=== PATIENT | female | born 1960 | race Caucasian/White ===

== ENCOUNTER 2023-05-16 10:14 | Inpatient (IN) | payer MEDICAID ==
[2023-05-16] VITALS (24 sets, daily range): BP systolic 63–118; BP diastolic 48–90; PULSE 112–145; RESP 21–27; TEMP 100
[~2023-05-16] VITALS: Ht 152.4 cm; Wt 71.7 kg
[2023-05-16] MEDS ORDERED: PIPERACILLIN/TAZ 3.375G PREMIX 50 ML IV ONE (10:45)
[2023-05-16] MEDS ORDERED: VANCOMYCIN 1G PREMIX 200 ML IV ONE (10:45)
[2023-05-16] MEDS ORDERED: SODIUM CHLORIDE 0.9% 1000ML BAG (SEPSIS BOLUS) IV ONE (10:45)
[2023-05-16 11:02] LABS: HEMATOCRIT. 34.7 % (36.0-48.0); MEAN CORPUSCULAR HEMOGLOBIN 34.7 pg (28.0-32.0); MEAN CORPUSCULAR HGB CONC 34.5 g/dL (31.0-37.0); MEAN CORPUSCULAR VOLUME 100.5 fL (81.0-99.0); MEAN PLATELET VOLUME 8.5 fl (7.4-10.4); PLATELET 112 x1000/uL (130-400); RED BLOOD CELL COUNT 3.45 mill/uL (4.2-5.4); RED CELL DISTRIBUTION WIDTH 25.5 % (11.6-14.6); WHITE BLOOD COUNT 16.3 x1000/uL (4.5-11.0)
[2023-05-16 11:05] LABS: DIFFERENTIAL COMMENT 1
[2023-05-16 11:15] LABS: CHLORIDE 103 mEq/L (98-107); INDEX HEMOLYSI 1 (1-3); INDEX ICTERIC 1 (1-4); INDEX LIPEMIC 1 (1-3); POTASSIUM 3.1 mEq/L (3.5-5.1); SODIUM 133 mEq/L (136-145)
[2023-05-16 11:25] LABS: ALANINE AMINOTRANSFERASE 51 IU/L (13-61); ALBUMIN 2.5 g/dL (3.4-5.0); ASPARTATE AMINOTRANSFERASE 61 IU/L (15-37); BILIRUBIN TOTAL 1.6 mg/dL (0.1-1.0); CALCIUM 9.1 mg/dL (8.5-10.1); CARBON DIOXIDE 22 mEq/L (21-32); CREATININE 0.6 mg/dL (0.6-1.3); GLUCOSE 221 mg/dL (70-105); NT PRO B-TYPE NATRIURETIC PEP 2107 pg/mL (5-125); PROTEIN TOTAL 7.2 g/dL (6.0-8.3); UREA NITROGEN BLOOD 18 mg/dL (7-21)
[2023-05-16 11:33] LABS: LACTIC ACID 6.4 mmol/L (0.4-2.0)
[2023-05-16 11:34] LABS: TROPONIN I HIGH SENSITIVITY 173 ng/L (<54)
[2023-05-16 11:40] LABS: ANISOCYTOSIS 1+; PLATELET ESTIMATE SLIGHTLY DECREASED
[2023-05-16 11:48] LABS: BG CARBOXYHEMOGLOBIN 1.1 % (0.5-1.5); BG DEOXYHEMOGLOBIN 3.7 % (0.0-5.0); BG FRACTION INSPIRED OXYGEN 36; BG HCO3 ACT 17.6 mmol/L (22.0-26.0); BG OXYGEN SATURATION 96.3 % (92.0-98.5); BG OXYHEMOGLOBIN 95.2 % (94.0-97.0); BG PCO2 29.4 mmHg (35.0-45.0); BG PH 7.396 (7.350-7.450); BG PO2 87.4 mmHg (75.0-100.0); BG SAMPLE SITE LEFT RADIAL; BG TOTAL HEMOGLOBIN 12.3 g/dL (12.0-18.0); BG TOTAL RESPIRATORY RATE 30 b/min; BG VENT MODE NASAL CANNULA
[2023-05-16] MEDS ORDERED: ETOMIDATE 2MG/ML 10ML VIAL IV ONE ×2 (12:00→13:30)
[2023-05-16] MEDS ORDERED: SUCCINYLCHOLINE CHLORIDE 200MG/10ML IV ONE ×2 (12:00→13:30)
[2023-05-16] MEDS ORDERED: PROPOFOL 10MG/ML 100ML 100 ML IV ONE ×2 (12:00→13:30)
[2023-05-16 12:58] LABS: INR 2.1; PROTHROMBIN TIME 21.2 sec (9.6-11.0)
[2023-05-16] MEDS ORDERED: FUROSEMIDE 40MG/4ML VIAL IVP ONE (13:00)
[2023-05-16] MEDS ORDERED: FENTANYL 2500MCG/250ML PMX 250 ML IV ONE (13:30)
[2023-05-16] MEDS ORDERED: FENTANYL CITRATE 2,500 MCG in SODIUM CHLORIDE 0.9% 200 ML IV PRN (14:15)
[2023-05-16 14:42] LABS: CLARITY URINE TURBID (CLEAR); COLOR URINE DARK YELLOW (YELLOW); GLUCOSE URINE TRACE (NEGATIVE); KETONES URINE NEGATIVE (NEGATIVE); LEUKOCYTE ESTERASE URINE NEGATIVE (NEGATIVE); NITRITE URINE NEGATIVE (NEGATIVE); OCCULT BLOOD URINE 1+ (NEGATIVE); PH URINE 5.5 (4.5-8.0); PROTEIN URINE 2+ (NEGATIVE); SPECIFIC GRAVITY URINE 1.021 (1.005-1.030)
[2023-05-16 14:47] LABS: LACTIC ACID 5.6 mmol/L (0.4-2.0)
[2023-05-16] MEDS ORDERED: PROPOFOL 10MG/ML 100ML 100 ML IV PRN (15:00)
[2023-05-16] MEDS ORDERED: NOREPINEPHRINE 8MG/250ML PMX 250 ML IV PRN (15:00)
[2023-05-16 15:11] LABS: BACTERIA URINE 2+; SQUAMOUS EPITHELIAL CELL URINE RARE /lpf (RARE/1+)
[2023-05-16 15:12] LABS: RBC URINE 0-2 /hpf (0-2); WBC URINE 0-2 /hpf (0-2)
[2023-05-16] MEDS ORDERED: GUAIFENESIN 200MG/10ML SUGAR FREE UDC PO PRN (15:15)
[2023-05-16] MEDS ORDERED: DEXTROSE 50% WATER 50ML SYRINGE IV PRN (15:15)
[2023-05-16] MEDS ORDERED: KCL 20MEQ/100ML PREMIX 100 ML IV NR (15:15)
[2023-05-16] MEDS ORDERED: VANCOMYCIN 1G PREMIX 200 ML IV SCH (15:15)
[2023-05-16] MEDS ORDERED: MAGNESIUM/ALUMINUM HYDROXIDE/SIMETHICONE 30ML UDC PO PRN (15:15)
[2023-05-16] MEDS ORDERED: ENOXAPARIN 40MG/0.4ML SYR SUBCUT SCH (15:15)
[2023-05-16] MEDS ORDERED: DOCUSATE SODIUM 100MG CAPSULE PO PRN (15:15)
[2023-05-16] MEDS ORDERED: IPRATROPIUM/ALBUTEROL 0.5-3(2.5)MG/3ML NEB NEB PRN (15:15)
[2023-05-16 15:19] LABS: BG DEOXYHEMOGLOBIN 16.4 % (0.0-5.0); BG FRACTION INSPIRED OXYGEN 60; BG HCO3 ACT 20.2 mmol/L (22.0-26.0); BG METHEMOGLOBIN 0.1 % (0.0-1.5); BG OXYGEN SATURATION 83.4 % (92.0-98.5); BG OXYHEMOGLOBIN 82.5 % (94.0-97.0); BG PCO2 47.4 mmHg (35.0-45.0); BG PH 7.248 (7.350-7.450); BG PO2 54.6 mmHg (75.0-100.0); BG SAMPLE SITE RIGHT BRACHIAL; BG TOTAL HEMOGLOBIN 13.3 g/dL (12.0-18.0); BG VENT MODE VENT - AC
[2023-05-16] MEDS ORDERED: PIPERACILLIN/TAZ 3.375G PREMIX 50 ML IV NR (15:45)
[2023-05-16] MEDS ORDERED: NOREPINEPHRINE 8MG/250ML PMX 250 ML IV ONE (15:45)
[2023-05-16 16:25] LABS: PHOSPHORUS 2.9 mg/dL (2.5-4.9)
[2023-05-16 16:55] LABS: VITAMIN B12 SERUM 1236 pg/mL (211-911)
[2023-05-16] MEDS ORDERED: FUROSEMIDE 40MG/4ML VIAL IV SCH (17:00)
[2023-05-16] MEDS ORDERED: VANCOMYCIN 1.25GM PMX (XELLIA) 250 ML IV SCH (17:00)
[2023-05-16 17:06] LABS: FOLIC ACID (FOLATE) SERUM > 20.00 ng/mL (>5.38)
[2023-05-16] MEDS ORDERED: SODIUM BICARBONATE 8.4% 1 MEQ/ML 50ML SYR IV NR (19:48)
[2023-05-16] MEDS: IPRATROPIUM BROMIDE (0.02%) 0.5MG/2.5ML NEB HHN SCH (20:17)
[2023-05-16] MEDS: INSULIN LISPRO 100 UNITS/ML SUBCUT SCH (21:00)
[2023-05-16] MEDS: BLOOD SUGAR DIAGNOSTIC STRIP TEST SCH (21:00)
[2023-05-16] MEDS ORDERED: VASOPRESSIN 20 UNIT in SODIUM CHLORIDE 0.9% 99 ML IV PRN (21:45)
[2023-05-16] MEDS ORDERED: NOREPINEPHRINE 32 MG in DEXT 5% WATER 218 ML IV PRN (21:45)
[2023-05-16] MEDS ORDERED: PIPERACILLIN/TAZOBACTAM 3.375 G in DEXTROSE 5% WATER 50 ML IV SCH (22:00)
[2023-05-16] MEDS ORDERED: VANCOMYCIN 750MG PREMIX 150 ML IV SCH (22:00)
[2023-05-16] MEDS: ENOXAPARIN 80MG/0.8ML SYR SUBCUT SCH (22:28)
[2023-05-16 22:30] LABS: CREATINE KINASE MB FRACTION 3.9 ng/mL (0.5-3.6)
[2023-05-16 22:34] LABS: AMMONIA 40 uMol/L (<32)
[2023-05-16] MEDS: PHENYLEPHRINE 100 MG in DEXT 5% WATER 240 ML IV PRN (22:34)
[2023-05-17] VITALS (104 sets, daily range): BP systolic 43–135; BP diastolic 28–98; PULSE 116–152; RESP 6–28; TEMP 98.7–102.2
[2023-05-17] MEDS: IPRATROPIUM BROMIDE (0.02%) 0.5MG/2.5ML NEB HHN SCH ×7 (00:13→20:13)
[2023-05-17] MEDS: ACETAMINOPHEN 325MG TABLET PO PRN (04:44)
[2023-05-17] MEDS: PHENYLEPHRINE 100 MG in DEXT 5% WATER 240 ML IV PRN ×3 (04:50→22:30)
[2023-05-17 05:20] LABS: HEMATOCRIT. 35.4 % (36.0-48.0); HEMOGLOBIN. 12.1 g/dL (12.0-16.0); MEAN CORPUSCULAR HGB CONC 34.2 g/dL (31.0-37.0); MEAN CORPUSCULAR VOLUME 105.4 fL (81.0-99.0); MEAN PLATELET VOLUME 9.1 fl (7.4-10.4); PLATELET 136 x1000/uL (130-400); RED BLOOD CELL COUNT 3.36 mill/uL (4.2-5.4); RED CELL DISTRIBUTION WIDTH 25.9 % (11.6-14.6); WHITE BLOOD COUNT 14.8 x1000/uL (4.5-11.0)
[2023-05-17 05:25] LABS: CHLORIDE 101 mEq/L (98-107); INDEX HEMOLYSI 1 (1-3); INDEX ICTERIC 1 (1-4); INDEX LIPEMIC 1 (1-3); POTASSIUM 3.3 mEq/L (3.5-5.1); SODIUM 136 mEq/L (136-145)
[2023-05-17 05:30] LABS: INR 3.1; PROTHROMBIN TIME 30.6 sec (9.6-11.0)
[2023-05-17 05:45] LABS: ALANINE AMINOTRANSFERASE 39 IU/L (13-61); ALBUMIN 2.2 g/dL (3.4-5.0); ASPARTATE AMINOTRANSFERASE 67 IU/L (15-37); BILIRUBIN TOTAL 1.6 mg/dL (0.1-1.0); CALCIUM 8.4 mg/dL (8.5-10.1); CARBON DIOXIDE 19 mEq/L (21-32); CREATINE KINASE 309 IU/L (26-192); CREATINE KINASE MB FRACTION 3.8 ng/mL (0.5-3.6); CREATININE 2.1 mg/dL (0.6-1.3); GLUCOSE 136 mg/dL (70-105); PROTEIN TOTAL 6.5 g/dL (6.0-8.3); T4 FREE 1.05 ng/dL (0.76-1.46); UREA NITROGEN BLOOD 32 mg/dL (7-21)
[2023-05-17 06:05] LABS: TROPONIN I HIGH SENSITIVITY 368 ng/L (<54)
[2023-05-17] MEDS ORDERED: FENTANYL 2500MCG/250ML PMX 250 ML IV PRN (07:00)
[2023-05-17] MEDS: ENOXAPARIN 80MG/0.8ML SYR SUBCUT SCH (07:17)
[2023-05-17 07:49] LABS: DIFFERENTIAL COMMENT 1
[2023-05-17] MEDS: BLOOD SUGAR DIAGNOSTIC STRIP TEST SCH ×4 (07:50→21:08)
[2023-05-17] MEDS: INSULIN LISPRO 100 UNITS/ML SUBCUT SCH ×4 (08:20→21:25)
[2023-05-17 08:25] LABS: BG BASE EXCESS -8.5 mmol/L (-2.0-2.0); BG CARBOXYHEMOGLOBIN 0.6 % (0.5-1.5); BG DEOXYHEMOGLOBIN 7.7 % (0.0-5.0); BG FRACTION INSPIRED OXYGEN 100; BG HCO3 ACT 18.2 mmol/L (22.0-26.0); BG METHEMOGLOBIN 0.3 % (0.0-1.5); BG OXYGEN SATURATION 92.2 % (92.0-98.5); BG OXYHEMOGLOBIN 91.4 % (94.0-97.0); BG PCO2 41.9 mmHg (35.0-45.0); BG PH 7.256 (7.350-7.450); BG PO2 69.4 mmHg (75.0-100.0); BG SAMPLE SITE RIGHT RADIAL; BG TOTAL HEMOGLOBIN 13.7 g/dL (12.0-18.0); BG VENT MODE VENT - AC
[2023-05-17] MEDS ORDERED: FAMOTIDINE 20MG/2ML VIAL IV SCH (09:00)
[2023-05-17] MEDS: ASPIRIN 81MG EC TABLET PO SCH (09:05)
[2023-05-17] MEDS: PIPERACILLIN/TAZOBACTAM 3.375 G in DEXTROSE 5% WATER 50 ML IV SCH ×3 (09:13→21:24)
[2023-05-17 09:41] LABS: ANISOCYTOSIS 2+; HYPOCHROMASIA 1+; NUCLEATED RED BLOOD CELLS 4 /100 WBC; PLATELET ESTIMATE NORMAL
[2023-05-17 09:44] LABS: HEMATOCRIT. 32.5 % (36.0-48.0); HEMOGLOBIN. 11.6 g/dL (12.0-16.0); MEAN CORPUSCULAR HEMOGLOBIN 38.7 pg (28.0-32.0); MEAN CORPUSCULAR HGB CONC 35.6 g/dL (31.0-37.0); MEAN CORPUSCULAR VOLUME 108.9 fL (81.0-99.0); MEAN PLATELET VOLUME 8.9 fl (7.4-10.4); PLATELET 130 x1000/uL (130-400); RED BLOOD CELL COUNT 2.99 mill/uL (4.2-5.4); RED CELL DISTRIBUTION WIDTH 26.1 % (11.6-14.6)
[2023-05-17] MEDS: MENTHOL/LANOLIN/CALAMINE/ZN OX OINT 71GM TOP SCH ×2 (09:45→17:49)
[2023-05-17 09:48] LABS: DIFFERENTIAL COMMENT 1
[2023-05-17] MEDS: VASOPRESSIN 20 UNIT in SODIUM CHLORIDE 0.9% 99 ML IV PRN ×2 (10:08→21:28)
[2023-05-17] MEDS: NOREPINEPHRINE 32 MG in DEXT 5% WATER 218 ML IV PRN ×2 (10:26→21:27)
[2023-05-17 10:53] LABS: ANISOCYTOSIS 2+; PLATELET ESTIMATE NORMAL
[2023-05-17] MEDS ORDERED: KCL 20MEQ/100ML PREMIX 100 ML IV NR (20:00)
[2023-05-18] VITALS (86 sets, daily range): BP systolic 60–177; BP diastolic 26–103; PULSE 89–117; RESP 5–35; TEMP 98–99.7
[2023-05-18] MEDS: IPRATROPIUM BROMIDE (0.02%) 0.5MG/2.5ML NEB HHN SCH ×6 (02:21→21:49)
[2023-05-18] MEDS: PHENYLEPHRINE 100 MG in DEXT 5% WATER 240 ML IV PRN ×3 (02:42→18:55)
[2023-05-18 05:27] LABS: HEMATOCRIT. 30.3 % (36.0-48.0); HEMOGLOBIN. 10.8 g/dL (12.0-16.0); MEAN CORPUSCULAR HEMOGLOBIN 37.1 pg (28.0-32.0); MEAN CORPUSCULAR HGB CONC 35.9 g/dL (31.0-37.0); MEAN CORPUSCULAR VOLUME 103.5 fL (81.0-99.0); MEAN PLATELET VOLUME 9.1 fl (7.4-10.4); PLATELET 98 x1000/uL (130-400); RED BLOOD CELL COUNT 2.92 mill/uL (4.2-5.4); RED CELL DISTRIBUTION WIDTH 25.8 % (11.6-14.6); WHITE BLOOD COUNT 13.5 x1000/uL (4.5-11.0)
[2023-05-18 05:30] LABS: POTASSIUM 4.1 mEq/L (3.5-5.1)
[2023-05-18] MEDS: PIPERACILLIN/TAZOBACTAM 3.375 G in DEXTROSE 5% WATER 50 ML IV SCH ×2 (05:31→20:59)
[2023-05-18 05:42] LABS: CALCIUM 7.7 mg/dL (8.5-10.1); CREATININE 2.3 mg/dL (0.6-1.3)
[2023-05-18 06:51] LABS: DIFFERENTIAL COMMENT 1
[2023-05-18] MEDS: FENTANYL CITRATE 2,500 MCG in SODIUM CHLORIDE 0.9% 200 ML IV PRN (06:56)
[2023-05-18] MEDS: BLOOD SUGAR DIAGNOSTIC STRIP TEST SCH ×4 (07:50→21:00)
[2023-05-18] MEDS ORDERED: LIDOCAINE HCL 1% 10 MG/ML 10ML VIAL ONE (08:18)
[2023-05-18 08:21] LABS: HEMATOCRIT. 30.9 % (36.0-48.0); HEMOGLOBIN. 10.9 g/dL (12.0-16.0); MEAN CORPUSCULAR HGB CONC 35.2 g/dL (31.0-37.0); MEAN CORPUSCULAR VOLUME 105.1 fL (81.0-99.0); MEAN PLATELET VOLUME 8.9 fl (7.4-10.4); PLATELET 104 x1000/uL (130-400); RED BLOOD CELL COUNT 2.94 mill/uL (4.2-5.4); RED CELL DISTRIBUTION WIDTH 25.6 % (11.6-14.6); WHITE BLOOD COUNT 12.8 x1000/uL (4.5-11.0)
[2023-05-18 08:33] LABS: CHLORIDE 102 mEq/L (98-107); INDEX HEMOLYSI 1 (1-3); INDEX ICTERIC 2 (1-4); INDEX LIPEMIC 1 (1-3); POTASSIUM 3.7 mEq/L (3.5-5.1); SODIUM 133 mEq/L (136-145)
[2023-05-18 08:41] LABS: ALANINE AMINOTRANSFERASE 33 IU/L (13-61); ALBUMIN 1.9 g/dL (3.4-5.0); ASPARTATE AMINOTRANSFERASE 85 IU/L (15-37); BILIRUBIN TOTAL 3.3 mg/dL (0.1-1.0); CALCIUM 7.6 mg/dL (8.5-10.1); CARBON DIOXIDE 22 mEq/L (21-32); CREATININE 2.2 mg/dL (0.6-1.3); GLUCOSE 184 mg/dL (70-105); UREA NITROGEN BLOOD 52 mg/dL (7-21)
[2023-05-18 08:51] LABS: DIFFERENTIAL COMMENT 1
[2023-05-18 09:09] LABS: BG CARBOXYHEMOGLOBIN 0.9 % (0.5-1.5); BG DEOXYHEMOGLOBIN 4.9 % (0.0-5.0); BG FRACTION INSPIRED OXYGEN 100; BG HCO3 ACT 24.2 mmol/L (22.0-26.0); BG METHEMOGLOBIN 0.1 % (0.0-1.5); BG OXYGEN SATURATION 95.1 % (92.0-98.5); BG OXYHEMOGLOBIN 94.1 % (94.0-97.0); BG PCO2 42.4 mmHg (35.0-45.0); BG PH 7.375 (7.350-7.450); BG PO2 79.9 mmHg (75.0-100.0); BG SAMPLE SITE RIGHT RADIAL; BG TOTAL HEMOGLOBIN 12.9 g/dL (12.0-18.0); BG VENT MODE VENT - AC
[2023-05-18] MEDS ORDERED: VANCOMYCIN 750MG PREMIX 150 ML IV NR (10:00)
[2023-05-18 10:21] LABS: ANISOCYTOSIS 2+; PLATELET ESTIMATE SLIGHTLY DECREASED
[2023-05-18] MEDS: ASPIRIN 81MG EC TABLET PO SCH (10:24)
[2023-05-18] MEDS: INSULIN LISPRO 100 UNITS/ML SUBCUT SCH ×4 (10:24→22:48)
[2023-05-18] MEDS: MENTHOL/LANOLIN/CALAMINE/ZN OX OINT 71GM TOP SCH ×2 (10:25→17:34)
[2023-05-18 11:18] LABS: ANISOCYTOSIS 2+; PLATELET ESTIMATE SLIGHTLY DECREASED
[2023-05-18 12:18] LABS: INR 2.3; PROTHROMBIN TIME 23.2 sec (9.6-11.0)
[2023-05-18] MEDS ORDERED: POVIDONE-IODINE 10% TOPICAL SOLN 240ML TOP NR (13:00)
[2023-05-18] MEDS: KETOCONAZOLE 2% CREAM 15GM TOP SCH (15:00)
[2023-05-18] MEDS: SODIUM CHLORIDE 0.9% 1,000 ML IV SCH (17:34)
[2023-05-18] MEDS: ACETAMINOPHEN 325MG TABLET PO PRN (20:58)
[2023-05-19] VITALS (97 sets, daily range): BP systolic 78–180; BP diastolic 46–100; PULSE 90–113; RESP 10–34; TEMP 97.9–99.7
[2023-05-19] MEDS: IPRATROPIUM BROMIDE (0.02%) 0.5MG/2.5ML NEB HHN SCH ×6 (00:24→20:46)
[2023-05-19] MEDS ORDERED: LORAZEPAM 2MG/ML CPJ IV NR ×2 (01:15→03:45)
[2023-05-19 06:13] LABS: HEMATOCRIT. 27.9 % (36.0-48.0); HEMOGLOBIN. 9.9 g/dL (12.0-16.0); MEAN CORPUSCULAR HEMOGLOBIN 35.1 pg (28.0-32.0); MEAN CORPUSCULAR HGB CONC 35.3 g/dL (31.0-37.0); MEAN CORPUSCULAR VOLUME 99.3 fL (81.0-99.0); MEAN PLATELET VOLUME 8.6 fl (7.4-10.4); PLATELET 86 x1000/uL (130-400); RED BLOOD CELL COUNT 2.81 mill/uL (4.2-5.4); RED CELL DISTRIBUTION WIDTH 26.2 % (11.6-14.6); WHITE BLOOD COUNT 12.5 x1000/uL (4.5-11.0)
[2023-05-19 06:27] LABS: CHLORIDE 102 mEq/L (98-107); INDEX HEMOLYSI 1 (1-3); INDEX ICTERIC 2 (1-4); INDEX LIPEMIC 1 (1-3); POTASSIUM 3.1 mEq/L (3.5-5.1); SODIUM 134 mEq/L (136-145)
[2023-05-19] MEDS: SODIUM CHLORIDE 0.9% 1,000 ML IV SCH (06:35)
[2023-05-19 06:38] LABS: ALANINE AMINOTRANSFERASE 34 IU/L (13-61); ALBUMIN 1.9 g/dL (3.4-5.0); ASPARTATE AMINOTRANSFERASE 98 IU/L (15-37); BILIRUBIN TOTAL 4.6 mg/dL (0.1-1.0); CALCIUM 7.7 mg/dL (8.5-10.1); CARBON DIOXIDE 24 mEq/L (21-32); CREATININE 1.8 mg/dL (0.6-1.3); GLUCOSE 167 mg/dL (70-105); UREA NITROGEN BLOOD 50 mg/dL (7-21)
[2023-05-19 06:41] LABS: INR 1.5; PROTHROMBIN TIME 15.6 sec (9.6-11.0)
[2023-05-19 06:48] LABS: DIFFERENTIAL COMMENT 1
[2023-05-19 08:01] LABS: BG BASE EXCESS -1.8 mmol/L (-2.0-2.0); BG CARBOXYHEMOGLOBIN 0.4 % (0.5-1.5); BG DEOXYHEMOGLOBIN 10.9 % (0.0-5.0); BG FRACTION INSPIRED OXYGEN 70; BG HCO3 ACT 22.6 mmol/L (22.0-26.0); BG METHEMOGLOBIN 0.3 % (0.0-1.5); BG OXYHEMOGLOBIN 88.4 % (94.0-97.0); BG PCO2 36.9 mmHg (35.0-45.0); BG PH 7.404 (7.350-7.450); BG PO2 59.8 mmHg (75.0-100.0); BG SAMPLE SITE LEFT RADIAL; BG TOTAL HEMOGLOBIN 10.4 g/dL (12.0-18.0); BG VENT MODE VENT - AC
[2023-05-19] MEDS: BLOOD SUGAR DIAGNOSTIC STRIP TEST SCH ×3 (08:33→17:32)
[2023-05-19] MEDS: INSULIN LISPRO 100 UNITS/ML SUBCUT SCH ×3 (08:46→17:46)
[2023-05-19] MEDS: PIPERACILLIN/TAZOBACTAM 3.375 G in DEXTROSE 5% WATER 50 ML IV SCH (08:47)
[2023-05-19] MEDS: FAMOTIDINE 20MG/2ML VIAL IV SCH (08:47)
[2023-05-19] MEDS: ASPIRIN 81MG EC TABLET PO SCH (08:48)
[2023-05-19] MEDS: MENTHOL/LANOLIN/CALAMINE/ZN OX OINT 71GM TOP SCH ×2 (08:51→17:46)
[2023-05-19] MEDS: KETOCONAZOLE 2% CREAM 15GM TOP SCH (08:51)
[2023-05-19] MEDS: KCL 20MEQ/100ML PREMIX 100 ML IV SCH ×2 (10:58→13:06)
[2023-05-19] MEDS: PHENYLEPHRINE 100 MG in DEXT 5% WATER 240 ML IV PRN ×2 (11:00→19:05)
[2023-05-19] MEDS: NOREPINEPHRINE 32 MG in DEXT 5% WATER 218 ML IV PRN (11:01)
[2023-05-19] MEDS ORDERED: FUROSEMIDE 40MG/4ML VIAL IVP NR (11:15)
[2023-05-19 12:58] LABS: PLATELET ESTIMATE DECREASED
[2023-05-19 13:03] LABS: ANISOCYTOSIS 1+
[2023-05-19] MEDS: PIPERACILLIN/TAZOBACTAM 3.375G in DEXT 5% WATER 50ML IV SCH ×2 (13:39→21:24)
[2023-05-19] MEDS ORDERED: LIDOCAINE HCL 1% 10 MG/ML 10ML VIAL ONE (13:56)
[2023-05-19] MEDS: FENTANYL CITRATE 2,500 MCG in SODIUM CHLORIDE 0.9% 200 ML IV PRN (15:35)
[2023-05-20] VITALS (73 sets, daily range): BP systolic 60–170; BP diastolic 48–120; PULSE 82–119; RESP 6–35; TEMP 97.4–99.7
[2023-05-20] MEDS: IPRATROPIUM BROMIDE (0.02%) 0.5MG/2.5ML NEB HHN SCH ×7 (00:14→23:54)
[2023-05-20] MEDS: INSULIN LISPRO 100 UNITS/ML SUBCUT SCH ×5 (01:54→23:35)
[2023-05-20] MEDS: PHENYLEPHRINE 100 MG in DEXT 5% WATER 240 ML IV PRN ×3 (03:58→22:35)
[2023-05-20] MEDS: BLOOD SUGAR DIAGNOSTIC STRIP TEST SCH ×5 (06:00→23:35)
[2023-05-20] MEDS: ACETAMINOPHEN 325MG TABLET PO PRN (06:17)
[2023-05-20] MEDS: PIPERACILLIN/TAZOBACTAM 3.375G in DEXT 5% WATER 50ML IV SCH ×2 (06:17→13:40)
[2023-05-20] MEDS: FENTANYL CITRATE 2,500 MCG in SODIUM CHLORIDE 0.9% 200 ML IV PRN ×2 (06:18→22:56)
[2023-05-20 07:35] LABS: HEMOGLOBIN. 10.3 g/dL (12.0-16.0); MEAN CORPUSCULAR HEMOGLOBIN 36.8 pg (28.0-32.0); MEAN CORPUSCULAR HGB CONC 35.5 g/dL (31.0-37.0); MEAN CORPUSCULAR VOLUME 103.9 fL (81.0-99.0); RED CELL DISTRIBUTION WIDTH 26.3 % (11.6-14.6)
[2023-05-20 08:12] LABS: DIFFERENTIAL COMMENT 1
[2023-05-20 09:03] LABS: BG BASE EXCESS -1.5 mmol/L (-2.0-2.0); BG CARBOXYHEMOGLOBIN 0.5 % (0.5-1.5); BG DEOXYHEMOGLOBIN 11.9 % (0.0-5.0); BG FRACTION INSPIRED OXYGEN 60; BG HCO3 ACT 22.7 mmol/L (22.0-26.0); BG METHEMOGLOBIN 0.3 % (0.0-1.5); BG OXYHEMOGLOBIN 87.3 % (94.0-97.0); BG PCO2 36.3 mmHg (35.0-45.0); BG PH 7.414 (7.350-7.450); BG PO2 57.2 mmHg (75.0-100.0); BG SAMPLE SITE RIGHT RADIAL; BG VENT MODE VENT - PRVC
[2023-05-20] MEDS: ASPIRIN 81MG EC TABLET PO SCH (09:31)
[2023-05-20] MEDS: MENTHOL/LANOLIN/CALAMINE/ZN OX OINT 71GM TOP SCH ×2 (09:32→17:08)
[2023-05-20] MEDS: KETOCONAZOLE 2% CREAM 15GM TOP SCH (09:32)
[2023-05-20 10:47] LABS: HEMATOCRIT. 28.7 % (36.0-48.0); MEAN CORPUSCULAR HEMOGLOBIN 34.8 pg (28.0-32.0); MEAN CORPUSCULAR HGB CONC 34.8 g/dL (31.0-37.0); MEAN CORPUSCULAR VOLUME 99.9 fL (81.0-99.0); PLATELET 63 x1000/uL (130-400); RED BLOOD CELL COUNT 2.88 mill/uL (4.2-5.4); RED CELL DISTRIBUTION WIDTH 25.8 % (11.6-14.6); WHITE BLOOD COUNT 15.4 x1000/uL (4.5-11.0)
[2023-05-20 11:00] LABS: DIFFERENTIAL COMMENT 1
[2023-05-20 12:31] LABS: PLATELET 89 x1000/uL (130-400)
[2023-05-20 12:36] LABS: NUCLEATED RED BLOOD CELLS 1 /100 WBC
[2023-05-20 12:37] LABS: PLATELET ESTIMATE DECREASED
[2023-05-20 12:40] LABS: ANISOCYTOSIS 2+
[2023-05-20 13:25] LABS: ATYPICAL LYMPHOCYTES 1; NUCLEATED RED BLOOD CELLS 1 /100 WBC
[2023-05-20 13:26] LABS: ANISOCYTOSIS 2+; PLATELET ESTIMATE DECREASED
[2023-05-20 14:11] LABS: POTASSIUM 3.6 mEq/L (3.5-5.1)
[2023-05-20 14:18] LABS: INDEX HEMOLYSI 1 (1-3); INDEX ICTERIC 2 (1-4); INDEX LIPEMIC 1 (1-3)
[2023-05-20 14:33] LABS: ALANINE AMINOTRANSFERASE 30 IU/L (13-61); ALBUMIN 1.8 g/dL (3.4-5.0); ASPARTATE AMINOTRANSFERASE 81 IU/L (15-37); BILIRUBIN TOTAL 4.9 mg/dL (0.1-1.0); CALCIUM 7.6 mg/dL (8.5-10.1); CARBON DIOXIDE 23 mEq/L (21-32); CHLORIDE 108 mEq/L (98-107); CREATININE 1.1 mg/dL (0.6-1.3); GLUCOSE 197 mg/dL (70-105); POTASSIUM 3.3 mEq/L (3.5-5.1); SODIUM 138 mEq/L (136-145); UREA NITROGEN BLOOD 37 mg/dL (7-21)
[2023-05-20] MEDS: MEROPENEM 1,000 MG in SODIUM CHLORIDE 0.9% 100 ML IV SCH (14:57)
[2023-05-20] MEDS: AZITHROMYCIN 500 MG TABLET PO SCH (14:57)
[2023-05-20 14:59] LABS: CALCIUM 7.6 mg/dL (8.5-10.1); CREATININE 1.2 mg/dL (0.6-1.3)
[2023-05-20] MEDS ORDERED: POTASSIUM CHLORIDE 20MEQ TABLET SR PO NR (16:45)
[2023-05-21] VITALS (98 sets, daily range): BP systolic 85–127; BP diastolic 54–79; PULSE 68–107; RESP 12–42; TEMP 98–101.2
[2023-05-21] MEDS: IPRATROPIUM BROMIDE (0.02%) 0.5MG/2.5ML NEB HHN SCH ×4 (03:46→16:46)
[2023-05-21] MEDS: MEROPENEM 1,000 MG in SODIUM CHLORIDE 0.9% 100 ML IV SCH ×2 (03:53→16:52)
[2023-05-21] MEDS: BLOOD SUGAR DIAGNOSTIC STRIP TEST SCH ×3 (05:29→18:04)
[2023-05-21] MEDS: INSULIN LISPRO 100 UNITS/ML SUBCUT SCH ×4 (05:30→18:00)
[2023-05-21] MEDS: ASPIRIN 81MG EC TABLET PO SCH (09:00)
[2023-05-21] MEDS: FAMOTIDINE 20MG/2ML VIAL IV SCH (09:00)
[2023-05-21] MEDS: MENTHOL/LANOLIN/CALAMINE/ZN OX OINT 71GM TOP SCH ×2 (09:01→16:53)
[2023-05-21] MEDS: KETOCONAZOLE 2% CREAM 15GM TOP SCH (09:01)
[2023-05-21 09:11] LABS: BG BASE EXCESS 0.4 mmol/L (-2.0-2.0); BG CARBOXYHEMOGLOBIN 1.1 % (0.5-1.5); BG DEOXYHEMOGLOBIN 14.1 % (0.0-5.0); BG FRACTION INSPIRED OXYGEN 60; BG HCO3 ACT 24.2 mmol/L (22.0-26.0); BG METHEMOGLOBIN 0.3 % (0.0-1.5); BG OXYGEN SATURATION 85.7 % (92.0-98.5); BG OXYHEMOGLOBIN 84.5 % (94.0-97.0); BG PCO2 35.8 mmHg (35.0-45.0); BG PH 7.447 (7.350-7.450); BG PO2 51.5 mmHg (75.0-100.0); BG SAMPLE SITE RIGHT RADIAL; BG TOTAL HEMOGLOBIN 11.5 g/dL (12.0-18.0); BG VENT MODE VENT - PRVC
[2023-05-21 10:15] LABS: CALCIUM 7.8 mg/dL (8.5-10.1); CHLORIDE 110 mEq/L (98-107); INDEX HEMOLYSI 1 (1-3); INDEX ICTERIC 3 (1-4); INDEX LIPEMIC 1 (1-3); POTASSIUM 3.7 mEq/L (3.5-5.1); SODIUM 140 mEq/L (136-145)
[2023-05-21 10:19] LABS: CARBON DIOXIDE 24 mEq/L (21-32); CREATININE 0.8 mg/dL (0.6-1.3); GLUCOSE 110 mg/dL (70-105); UREA NITROGEN BLOOD 31 mg/dL (7-21)
[2023-05-21 10:36] LABS: HEMATOCRIT. 28.2 % (36.0-48.0); MEAN CORPUSCULAR HEMOGLOBIN 35.8 pg (28.0-32.0); MEAN CORPUSCULAR HGB CONC 35.3 g/dL (31.0-37.0); MEAN CORPUSCULAR VOLUME 101.6 fL (81.0-99.0); MEAN PLATELET VOLUME 9.7 fl (7.4-10.4); PLATELET 60 x1000/uL (130-400); RED BLOOD CELL COUNT 2.78 mill/uL (4.2-5.4); RED CELL DISTRIBUTION WIDTH 26.2 % (11.6-14.6); WHITE BLOOD COUNT 23.7 x1000/uL (4.5-11.0)
[2023-05-21 10:37] LABS: DIFFERENTIAL COMMENT 1
[2023-05-21 16:04] LABS: ANISOCYTOSIS 4+; NUCLEATED RED BLOOD CELLS 12 /100 WBC; PLATELET ESTIMATE DECREASED
[2023-05-21] MEDS: AZITHROMYCIN 500 MG TABLET PO SCH (16:52)
[2023-05-21] MEDS: ACETAMINOPHEN 325MG TABLET PO PRN (20:52)
[2023-05-22] VITALS (79 sets, daily range): BP systolic 90–173; BP diastolic 60–112; PULSE 94–118; RESP 14–42; TEMP 99.4–101.4
[2023-05-22] MEDS: BLOOD SUGAR DIAGNOSTIC STRIP TEST SCH ×4 (00:22→17:31)
[2023-05-22] MEDS: INSULIN LISPRO 100 UNITS/ML SUBCUT SCH ×4 (00:38→17:31)
[2023-05-22] MEDS: MEROPENEM 1,000 MG in SODIUM CHLORIDE 0.9% 100 ML IV SCH ×2 (03:28→15:22)
[2023-05-22 06:34] LABS: HEMATOCRIT. 27.5 % (36.0-48.0); HEMOGLOBIN. 9.6 g/dL (12.0-16.0); MEAN CORPUSCULAR HGB CONC 34.8 g/dL (31.0-37.0); MEAN CORPUSCULAR VOLUME 103.5 fL (81.0-99.0); MEAN PLATELET VOLUME 8.7 fl (7.4-10.4); RED BLOOD CELL COUNT 2.66 mill/uL (4.2-5.4); RED CELL DISTRIBUTION WIDTH 26.9 % (11.6-14.6)
[2023-05-22 06:49] LABS: DIFFERENTIAL COMMENT 1
[2023-05-22 07:01] LABS: CHLORIDE 111 mEq/L (98-107); INDEX HEMOLYSI 2 (1-3); INDEX ICTERIC 3 (1-4); INDEX LIPEMIC 1 (1-3); SODIUM 140 mEq/L (136-145)
[2023-05-22 07:11] LABS: CALCIUM 7.8 mg/dL (8.5-10.1); CARBON DIOXIDE 24 mEq/L (21-32); CREATININE 0.8 mg/dL (0.6-1.3); GLUCOSE 155 mg/dL (70-105); NT PRO B-TYPE NATRIURETIC PEP 4505 pg/mL (5-125); UREA NITROGEN BLOOD 34 mg/dL (7-21)
[2023-05-22] MEDS: ACETAMINOPHEN 325MG TABLET PO PRN ×2 (08:45→20:45)
[2023-05-22] MEDS: ASPIRIN 81MG EC TABLET PO SCH (09:00)
[2023-05-22] MEDS ORDERED: LACTULOSE 20G/30ML UDC PO NR (09:15)
[2023-05-22] MEDS: KETOCONAZOLE 2% CREAM 15GM TOP SCH (09:41)
[2023-05-22] MEDS: MENTHOL/LANOLIN/CALAMINE/ZN OX OINT 71GM TOP SCH ×2 (09:41→17:07)
[2023-05-22] MEDS: FENTANYL CITRATE 2,500 MCG in SODIUM CHLORIDE 0.9% 200 ML IV PRN (09:43)
[2023-05-22 10:02] LABS: NUCLEATED RED BLOOD CELLS 10 /100 WBC
[2023-05-22 10:03] LABS: ANISOCYTOSIS 4+; PLATELET ESTIMATE MARKEDLY DECREASED; TARGET CELLS 1+
[2023-05-22 10:04] LABS: PLATELET 37 x1000/uL (130-400)
[2023-05-22] MEDS ORDERED: FUROSEMIDE 40MG/4ML VIAL IVP NR (10:30)
[2023-05-22] MEDS ORDERED: METHYLPREDNISOLONE SOD SUCC 40MG VIAL IV SCH (10:30)
[2023-05-22] MEDS: METHYLPREDNISOLONE SOD SUCC 40MG VIAL IV SCH ×2 (11:01→17:30)
[2023-05-22] MEDS: AZITHROMYCIN 500 MG TABLET PO SCH (13:58)
[2023-05-22 18:01] LABS: FIBRINOGEN 442 mg/dL (200-400)
[2023-05-22 19:06] LABS: D-DIMER > 35.20 mg/L FEU (<0.50)
[2023-05-22] MEDS: DOCUSATE SODIUM SUGAR FREE 100MG/10ML UDC NG PRN (20:45)
[2023-05-22] MEDS: ONDANSETRON HCL 4MG/2ML INJ IV PRN (21:10)
[2023-05-22 21:54] LABS: HEMATOCRIT 27.2 % (36.0-48.0); HEMOGLOBIN 9.3 g/dL (12.0-16.0)
[2023-05-22 22:14] LABS: INDEX HEMOLYSI 1 (1-3); INDEX ICTERIC 3 (1-4); INDEX LIPEMIC 1 (1-3)
[2023-05-22 22:19] LABS: TOTAL IRON BINDING CAPACITY 271 ug/dL (250-450)
[2023-05-22 22:30] LABS: FERRITIN 664 ng/mL (10-291)
[2023-05-22 22:41] LABS: HEPATITIS B SURFACE ANTIGEN NEGATIVE
[2023-05-22 23:07] LABS: IRON 48 ug/dL (50-175)
[2023-05-22 23:09] LABS: HEPATITIS B CORE AB IGM NEGATIVE
[2023-05-22 23:11] LABS: HEPATITIS A AB IGM NEGATIVE (NEGATIVE)
[2023-05-23] VITALS (93 sets, daily range): BP systolic 109–196; BP diastolic 72–120; PULSE 78–118; RESP 12–28; TEMP 97.8–101.5
[2023-05-23] MEDS: BLOOD SUGAR DIAGNOSTIC STRIP TEST SCH ×5 (00:13→23:35)
[2023-05-23] MEDS: INSULIN LISPRO 100 UNITS/ML SUBCUT SCH ×4 (00:21→18:14)
[2023-05-23] MEDS: METHYLPREDNISOLONE SOD SUCC 40MG VIAL IV SCH ×3 (01:46→17:56)
[2023-05-23 03:02] LABS: HEMATOCRIT 25.8 % (36.0-48.0)
[2023-05-23] MEDS: ONDANSETRON HCL 4MG/2ML INJ IV PRN ×2 (03:21→12:32)
[2023-05-23] MEDS: MEROPENEM 1,000 MG in SODIUM CHLORIDE 0.9% 100 ML IV SCH ×2 (03:21→15:00)
[2023-05-23] MEDS ORDERED: FENTANYL 2500MCG/250ML PMX 250 ML IV PRN ×2 (05:15→05:25)
[2023-05-23] MEDS: CLONIDINE 0.1MG TABLET PO PRN (05:21)
[2023-05-23] MEDS: FENTANYL CITRATE 2,500 MCG in SODIUM CHLORIDE 0.9% 200 ML IV PRN ×2 (05:48→22:53)
[2023-05-23 09:19] LABS: BG BASE EXCESS 1.7 mmol/L (-2.0-2.0); BG DEOXYHEMOGLOBIN 6.8 % (0.0-5.0); BG FRACTION INSPIRED OXYGEN 705; BG HCO3 ACT 26.5 mmol/L (22.0-26.0); BG METHEMOGLOBIN 0.3 % (0.0-1.5); BG OXYGEN SATURATION 93.1 % (92.0-98.5); BG OXYHEMOGLOBIN 91.9 % (94.0-97.0); BG PCO2 42.8 mmHg (35.0-45.0); BG PO2 67.9 mmHg (75.0-100.0); BG TOTAL HEMOGLOBIN 10.3 g/dL (12.0-18.0); BG VENT MODE PRVC
[2023-05-23] MEDS: FUROSEMIDE 40MG/4ML VIAL IVP SCH (09:46)
[2023-05-23] MEDS: PANTOPRAZOLE SODIUM 40 MG/VIAL IV SCH ×2 (09:46→20:49)
[2023-05-23] MEDS: MENTHOL/LANOLIN/CALAMINE/ZN OX OINT 71GM TOP SCH ×2 (09:47→17:56)
[2023-05-23 10:52] LABS: BASOPHILS % 0.2 % (0.0-2.0); HEMATOCRIT. 27.2 % (36.0-48.0); HEMOGLOBIN. 9.1 g/dL (12.0-16.0); LYMPHOCYTES % 9.9 % (20.0-50.0); MEAN CORPUSCULAR HEMOGLOBIN 34.7 pg (28.0-32.0); MEAN CORPUSCULAR HGB CONC 33.5 g/dL (31.0-37.0); MEAN CORPUSCULAR VOLUME 103.6 fL (81.0-99.0); MONOCYTES % 3.3 % (2.0-8.0); NEUTROPHILS % 86.6 % (40.0-76.0); RED BLOOD CELL COUNT 2.63 mill/uL (4.2-5.4); RED CELL DISTRIBUTION WIDTH 26.6 % (11.6-14.6)
[2023-05-23 10:58] LABS: DIFFERENTIAL COMMENT 1
[2023-05-23 10:59] LABS: ADD RBC MORPHOLOGY YES
[2023-05-23 11:02] LABS: CHLORIDE 116 mEq/L (98-107); INDEX HEMOLYSI 1 (1-3); INDEX ICTERIC 3 (1-4); INDEX LIPEMIC 1 (1-3); POTASSIUM 3.8 mEq/L (3.5-5.1); SODIUM 149 mEq/L (136-145)
[2023-05-23 11:09] LABS: ALANINE AMINOTRANSFERASE 21 IU/L (13-61); ALBUMIN 1.9 g/dL (3.4-5.0); ASPARTATE AMINOTRANSFERASE 60 IU/L (15-37); BILIRUBIN DIRECT 4.1 mg/dL (0.0-0.2); BILIRUBIN TOTAL 5.4 mg/dL (0.1-1.0); CALCIUM 8.4 mg/dL (8.5-10.1); CARBON DIOXIDE 30 mEq/L (21-32); CREATININE 0.7 mg/dL (0.6-1.3); GLUCOSE 182 mg/dL (70-105); PROTEIN TOTAL 6.9 g/dL (6.0-8.3); UREA NITROGEN BLOOD 40 mg/dL (7-21)
[2023-05-23] MEDS ORDERED: IRON SUCROSE COMPLEX 100 MG/5 ML ML IV NR (11:15)
[2023-05-23 11:22] LABS: ANISOCYTOSIS 4+
[2023-05-23 11:23] LABS: PLATELET ESTIMATE MARKEDLY DECREASED
[2023-05-23 11:26] LABS: MEAN PLATELET VOLUME 7.8 fl (7.4-10.4); PLATELET 15 x1000/uL (130-400)
[2023-05-23] MEDS: AZITHROMYCIN 500 MG TABLET PO SCH (15:00)
[2023-05-23] MEDS: ACETAMINOPHEN 325MG TABLET PO PRN (19:11)
[2023-05-23 20:38] LABS: HEMATOCRIT 26.6 % (36.0-48.0); HEMOGLOBIN 9.1 g/dL (12.0-16.0)
[2023-05-24] VITALS (106 sets, daily range): BP systolic 102–193; BP diastolic 67–110; PULSE 71–138; RESP 18–33; TEMP 98.2–101.6
[2023-05-24] MEDS: INSULIN LISPRO 100 UNITS/ML SUBCUT SCH ×4 (00:24→17:13)
[2023-05-24] MEDS: MEROPENEM 1,000 MG in SODIUM CHLORIDE 0.9% 100 ML IV SCH ×2 (02:34→14:34)
[2023-05-24] MEDS: METHYLPREDNISOLONE SOD SUCC 40MG VIAL IV SCH ×3 (02:34→21:00)
[2023-05-24] MEDS: BLOOD SUGAR DIAGNOSTIC STRIP TEST SCH ×3 (06:11→17:13)
[2023-05-24 06:55] LABS: HEMATOCRIT. 26.7 % (36.0-48.0); MEAN CORPUSCULAR HEMOGLOBIN 35.9 pg (28.0-32.0); MEAN CORPUSCULAR HGB CONC 33.7 g/dL (31.0-37.0); MEAN CORPUSCULAR VOLUME 106.6 fL (81.0-99.0); MEAN PLATELET VOLUME 10.6 fl (7.4-10.4); RED CELL DISTRIBUTION WIDTH 27.2 % (11.6-14.6)
[2023-05-24 07:04] LABS: CHLORIDE 117 mEq/L (98-107); INDEX HEMOLYSI 2 (1-3); INDEX ICTERIC 2 (1-4); INDEX LIPEMIC 1 (1-3); POTASSIUM 4.2 mEq/L (3.5-5.1); SODIUM 148 mEq/L (136-145)
[2023-05-24 07:13] LABS: CALCIUM 8.1 mg/dL (8.5-10.1); CARBON DIOXIDE 30 mEq/L (21-32); CREATININE 0.8 mg/dL (0.6-1.3); GLUCOSE 250 mg/dL (70-105); UREA NITROGEN BLOOD 43 mg/dL (7-21)
[2023-05-24 07:22] LABS: DIFFERENTIAL COMMENT 1
[2023-05-24 07:42] LABS: NUCLEATED RED BLOOD CELLS 7 /100 WBC
[2023-05-24 07:43] LABS: ANISOCYTOSIS 4+; PLATELET ESTIMATE MARKEDLY DECREASED; TARGET CELLS 1+
[2023-05-24 07:50] LABS: PLATELET 19 x1000/uL (130-400)
[2023-05-24 08:33] LABS: BG CARBOXYHEMOGLOBIN 0.4 % (0.5-1.5); BG DEOXYHEMOGLOBIN 5.3 % (0.0-5.0); BG FRACTION INSPIRED OXYGEN 70; BG HCO3 ACT 30.3 mmol/L (22.0-26.0); BG METHEMOGLOBIN 0.4 % (0.0-1.5); BG OXYGEN SATURATION 94.7 % (92.0-98.5); BG OXYHEMOGLOBIN 93.9 % (94.0-97.0); BG PCO2 43.1 mmHg (35.0-45.0); BG PH 7.465 (7.350-7.450); BG PO2 74.5 mmHg (75.0-100.0); BG SAMPLE SITE RIGHT RADIAL; BG VENT MODE PRVC - AC
[2023-05-24] MEDS: FUROSEMIDE 40MG/4ML VIAL IVP SCH (08:43)
[2023-05-24] MEDS: PANTOPRAZOLE SODIUM 40 MG/VIAL IV SCH ×2 (08:43→20:51)
[2023-05-24] MEDS: MENTHOL/LANOLIN/CALAMINE/ZN OX OINT 71GM TOP SCH ×2 (08:44→17:13)
[2023-05-24] MEDS: DOCUSATE SODIUM SUGAR FREE 100MG/10ML UDC NG PRN (10:18)
[2023-05-24] MEDS ORDERED: LACTULOSE 20G/30ML UDC PO PRN (11:15)
[2023-05-24] MEDS: AZITHROMYCIN 500 MG TABLET PO SCH (14:34)
[2023-05-24] MEDS: CLONIDINE 0.1MG TABLET PO PRN (18:24)
[2023-05-24] MEDS: ACETAMINOPHEN 325MG TABLET PO PRN (18:44)
[2023-05-24] MEDS: FENTANYL CITRATE 2,500 MCG in SODIUM CHLORIDE 0.9% 200 ML IV PRN (20:32)
[2023-05-25] VITALS (110 sets, daily range): BP systolic 108–170; BP diastolic 66–119; PULSE 75–108; RESP 4–32; TEMP 98.2–99.9
[2023-05-25] MEDS: INSULIN LISPRO 100 UNITS/ML SUBCUT SCH ×5 (01:30→23:45)
[2023-05-25] MEDS: MEROPENEM 1,000 MG in SODIUM CHLORIDE 0.9% 100 ML IV SCH ×2 (03:38→16:10)
[2023-05-25 05:29] LABS: HEMATOCRIT. 27.4 % (36.0-48.0); MEAN CORPUSCULAR HEMOGLOBIN 35.6 pg (28.0-32.0); MEAN CORPUSCULAR HGB CONC 32.8 g/dL (31.0-37.0); MEAN CORPUSCULAR VOLUME 108.4 fL (81.0-99.0); RED BLOOD CELL COUNT 2.53 mill/uL (4.2-5.4)
[2023-05-25 05:35] LABS: CHLORIDE 120 mEq/L (98-107); INDEX HEMOLYSI 1 (1-3); INDEX ICTERIC 2 (1-4); INDEX LIPEMIC 1 (1-3); POTASSIUM 4.4 mEq/L (3.5-5.1); SODIUM 152 mEq/L (136-145)
[2023-05-25 05:42] LABS: ALANINE AMINOTRANSFERASE 22 IU/L (13-61); ALBUMIN 1.8 g/dL (3.4-5.0); ASPARTATE AMINOTRANSFERASE 50 IU/L (15-37); BILIRUBIN DIRECT 1.8 mg/dL (0.0-0.2); BILIRUBIN TOTAL 2.5 mg/dL (0.1-1.0); CALCIUM 7.7 mg/dL (8.5-10.1); CARBON DIOXIDE 31 mEq/L (21-32); CREATININE 0.7 mg/dL (0.6-1.3); GLUCOSE 206 mg/dL (70-105); PHOSPHORUS 1.8 mg/dL (2.5-4.9); PROTEIN TOTAL 6.5 g/dL (6.0-8.3); UREA NITROGEN BLOOD 40 mg/dL (7-21)
[2023-05-25] MEDS: BLOOD SUGAR DIAGNOSTIC STRIP TEST SCH ×5 (05:51→23:45)
[2023-05-25 06:30] LABS: DIFFERENTIAL COMMENT 1
[2023-05-25 06:31] LABS: PLATELET 15 x1000/uL (130-400)
[2023-05-25] MEDS: FUROSEMIDE 40MG/4ML VIAL IVP SCH (08:30)
[2023-05-25] MEDS: PANTOPRAZOLE SODIUM 40 MG/VIAL IV SCH ×2 (08:30→21:28)
[2023-05-25] MEDS: METHYLPREDNISOLONE SOD SUCC 40MG VIAL IV SCH ×2 (08:30→21:28)
[2023-05-25] MEDS: MENTHOL/LANOLIN/CALAMINE/ZN OX OINT 71GM TOP SCH ×2 (08:31→17:23)
[2023-05-25] MEDS: DEXTROSE 5% WATER 1,000 ML IV SCH (08:33)
[2023-05-25 09:18] LABS: BG BASE EXCESS 6.5 mmol/L (-2.0-2.0); BG CARBOXYHEMOGLOBIN 1.2 % (0.5-1.5); BG DEOXYHEMOGLOBIN 6.1 % (0.0-5.0); BG FRACTION INSPIRED OXYGEN 80; BG HCO3 ACT 30.9 mmol/L (22.0-26.0); BG METHEMOGLOBIN 0.1 % (0.0-1.5); BG OXYGEN SATURATION 93.8 % (92.0-98.5); BG OXYHEMOGLOBIN 92.6 % (94.0-97.0); BG PH 7.465 (7.350-7.450); BG SAMPLE SITE RIGHT RADIAL; BG TOTAL HEMOGLOBIN 10.5 g/dL (12.0-18.0); BG VENT MODE VENT - PRVC
[2023-05-25] MEDS ORDERED: POTASSIUM PHOS,M-BASIC-D-BASIC 20 MMOL in DEXT 5% WATER 243.3333 ML IV NR (10:00)
[2023-05-25 10:40] LABS: ANISOCYTOSIS 2+; NUCLEATED RED BLOOD CELLS 16 /100 WBC; PLATELET ESTIMATE MARKEDLY DECREASED
[2023-05-25] MEDS: ACETAMINOPHEN 325MG TABLET PO PRN ×2 (12:52→19:36)
[2023-05-25] MEDS: FENTANYL CITRATE 2,500 MCG in SODIUM CHLORIDE 0.9% 200 ML IV PRN (17:24)
[2023-05-26] VITALS (109 sets, daily range): BP systolic 86–157; BP diastolic 57–102; PULSE 70–111; RESP 4–36; TEMP 98.4–100.2
[2023-05-26] MEDS: DEXTROSE 5% WATER 1,000 ML IV SCH ×2 (01:18→23:15)
[2023-05-26] MEDS: MEROPENEM 1,000 MG in SODIUM CHLORIDE 0.9% 100 ML IV SCH ×3 (02:54→17:03)
[2023-05-26] MEDS: INSULIN LISPRO 100 UNITS/ML SUBCUT SCH ×4 (05:51→23:19)
[2023-05-26] MEDS: BLOOD SUGAR DIAGNOSTIC STRIP TEST SCH ×4 (05:52→23:11)
[2023-05-26 06:28] LABS: HEMATOCRIT. 24.1 % (36.0-48.0); HEMOGLOBIN. 8.1 g/dL (12.0-16.0); MEAN CORPUSCULAR HEMOGLOBIN 36.9 pg (28.0-32.0); MEAN CORPUSCULAR HGB CONC 33.6 g/dL (31.0-37.0); MEAN CORPUSCULAR VOLUME 109.8 fL (81.0-99.0); MEAN PLATELET VOLUME 10.4 fl (7.4-10.4); RED CELL DISTRIBUTION WIDTH 29.2 % (11.6-14.6); WHITE BLOOD COUNT 21.6 x1000/uL (4.5-11.0)
[2023-05-26 06:50] LABS: CHLORIDE 116 mEq/L (98-107); INDEX HEMOLYSI 1 (1-3); INDEX ICTERIC 2 (1-4); INDEX LIPEMIC 1 (1-3); POTASSIUM 4.3 mEq/L (3.5-5.1); SODIUM 150 mEq/L (136-145)
[2023-05-26 06:56] LABS: CALCIUM 7.3 mg/dL (8.5-10.1); CARBON DIOXIDE 32 mEq/L (21-32); CREATININE 0.5 mg/dL (0.6-1.3); GLUCOSE 263 mg/dL (70-105); PHOSPHORUS 2.4 mg/dL (2.5-4.9); UREA NITROGEN BLOOD 34 mg/dL (7-21)
[2023-05-26 07:21] LABS: DIFFERENTIAL COMMENT 1
[2023-05-26] MEDS ORDERED: POTASSIUM PHOS,M-BASIC-D-BASIC 20 MMOL in DEXT 5% WATER 243.3333 ML IV NR (09:00)
[2023-05-26] MEDS: FUROSEMIDE 40MG/4ML VIAL IVP SCH (09:01)
[2023-05-26] MEDS: PANTOPRAZOLE SODIUM 40 MG/VIAL IV SCH ×2 (09:02→21:16)
[2023-05-26] MEDS: METHYLPREDNISOLONE SOD SUCC 40MG VIAL IV SCH ×2 (09:04→21:16)
[2023-05-26 10:51] LABS: NUCLEATED RED BLOOD CELLS 5 /100 WBC
[2023-05-26 10:52] LABS: ANISOCYTOSIS 4+; MICROCYTOSIS 2+; PLATELET ESTIMATE MARKEDLY DECREASED; TARGET CELLS 1+
[2023-05-26 10:53] LABS: PLATELET 18 x1000/uL (130-400)
[2023-05-26 11:15] LABS: BG BASE EXCESS 9.5 mmol/L (-2.0-2.0); BG CARBOXYHEMOGLOBIN 0.6 % (0.5-1.5); BG DEOXYHEMOGLOBIN 5.5 % (0.0-5.0); BG FRACTION INSPIRED OXYGEN 80; BG HCO3 ACT 34.1 mmol/L (22.0-26.0); BG METHEMOGLOBIN 0.3 % (0.0-1.5); BG OXYGEN SATURATION 94.5 % (92.0-98.5); BG OXYHEMOGLOBIN 93.6 % (94.0-97.0); BG PCO2 47.2 mmHg (35.0-45.0); BG PH 7.477 (7.350-7.450); BG PO2 75.9 mmHg (75.0-100.0); BG SAMPLE SITE RIGHT RADIAL; BG TOTAL HEMOGLOBIN 9.3 g/dL (12.0-18.0); BG VENT MODE PRVC
[2023-05-26] MEDS: MENTHOL/LANOLIN/CALAMINE/ZN OX OINT 71GM TOP SCH ×2 (11:24→17:18)
[2023-05-26] MEDS: IPRATROPIUM/ALBUTEROL 0.5-3(2.5)MG/3ML NEB HHN SCH ×2 (13:49→20:57)
[2023-05-26] MEDS: FENTANYL CITRATE 2,500 MCG in SODIUM CHLORIDE 0.9% 200 ML IV PRN (17:03)
[2023-05-27] VITALS (111 sets, daily range): BP systolic 108–236; BP diastolic 44–147; PULSE 65–142; RESP 4–37; TEMP 98.4–99.4
[2023-05-27] MEDS: IPRATROPIUM/ALBUTEROL 0.5-3(2.5)MG/3ML NEB HHN SCH ×4 (01:25→19:54)
[2023-05-27] MEDS: MEROPENEM 1,000 MG in SODIUM CHLORIDE 0.9% 100 ML IV SCH ×2 (03:39→16:27)
[2023-05-27] MEDS: BLOOD SUGAR DIAGNOSTIC STRIP TEST SCH ×3 (06:24→18:00)
[2023-05-27] MEDS: INSULIN LISPRO 100 UNITS/ML SUBCUT SCH ×4 (06:28→23:58)
[2023-05-27 06:31] LABS: HEMOGLOBIN. 8.5 g/dL (12.0-16.0); MEAN CORPUSCULAR HEMOGLOBIN 35.2 pg (28.0-32.0); MEAN CORPUSCULAR HGB CONC 32.6 g/dL (31.0-37.0); MEAN CORPUSCULAR VOLUME 108.2 fL (81.0-99.0); MEAN PLATELET VOLUME 10.8 fl (7.4-10.4)
[2023-05-27 06:39] LABS: CHLORIDE 114 mEq/L (98-107); INDEX HEMOLYSI 1 (1-3); INDEX ICTERIC 2 (1-4); INDEX LIPEMIC 1 (1-3); POTASSIUM 4.3 mEq/L (3.5-5.1); SODIUM 147 mEq/L (136-145)
[2023-05-27 06:50] LABS: CALCIUM 7.6 mg/dL (8.5-10.1); CARBON DIOXIDE 30 mEq/L (21-32); CREATININE 0.5 mg/dL (0.6-1.3); GLUCOSE 309 mg/dL (70-105); PHOSPHORUS 2.7 mg/dL (2.5-4.9); UREA NITROGEN BLOOD 31 mg/dL (7-21)
[2023-05-27 07:58] LABS: DIFFERENTIAL COMMENT 1
[2023-05-27 08:02] LABS: PLATELET 19 x1000/uL (130-400)
[2023-05-27] MEDS: METHYLPREDNISOLONE SOD SUCC 40MG VIAL IV SCH (08:29)
[2023-05-27] MEDS: FUROSEMIDE 40MG/4ML VIAL IVP SCH (08:29)
[2023-05-27] MEDS: PANTOPRAZOLE SODIUM 40 MG/VIAL IV SCH ×2 (08:29→21:08)
[2023-05-27] MEDS: MENTHOL/LANOLIN/CALAMINE/ZN OX OINT 71GM TOP SCH ×2 (08:29→18:04)
[2023-05-27 09:03] LABS: BG BASE EXCESS 5.4 mmol/L (-2.0-2.0); BG CARBOXYHEMOGLOBIN 0.9 % (0.5-1.5); BG DEOXYHEMOGLOBIN 10.1 % (0.0-5.0); BG FRACTION INSPIRED OXYGEN 80; BG HCO3 ACT 29.7 mmol/L (22.0-26.0); BG METHEMOGLOBIN 0.1 % (0.0-1.5); BG OXYGEN SATURATION 89.8 % (92.0-98.5); BG OXYHEMOGLOBIN 88.9 % (94.0-97.0); BG PCO2 42.6 mmHg (35.0-45.0); BG PH 7.461 (7.350-7.450); BG PO2 59.7 mmHg (75.0-100.0); BG SAMPLE SITE RIGHT RADIAL; BG TOTAL HEMOGLOBIN 10.1 g/dL (12.0-18.0); BG VENT MODE VENT - AC
[2023-05-27 09:50] LABS: ANISOCYTOSIS 3+; PLATELET ESTIMATE MARKEDLY DECREASED
[2023-05-27] MEDS: CLONIDINE 0.1MG TABLET PO PRN (15:12)
[2023-05-27] MEDS: FENTANYL CITRATE 2,500 MCG in SODIUM CHLORIDE 0.9% 200 ML IV PRN (18:03)
[2023-05-27] MEDS: PREDNISONE 20MG TABLET PO SCH (18:04)
[2023-05-27] MEDS: DEXTROSE 5% WATER 1,000 ML IV SCH (18:22)
[2023-05-28] VITALS (80 sets, daily range): BP systolic 83–188; BP diastolic 50–121; PULSE 80–128; RESP 5–41; TEMP 98.4–101
[2023-05-28] MEDS: BLOOD SUGAR DIAGNOSTIC STRIP TEST SCH ×4 (00:05→17:40)
[2023-05-28] MEDS: IPRATROPIUM/ALBUTEROL 0.5-3(2.5)MG/3ML NEB HHN SCH ×4 (01:27→20:36)
[2023-05-28 07:07] LABS: CHLORIDE 114 mEq/L (98-107); INDEX HEMOLYSI 3 (1-3); INDEX ICTERIC 1 (1-4); INDEX LIPEMIC 1 (1-3); POTASSIUM 3.9 mEq/L (3.5-5.1); SODIUM 148 mEq/L (136-145)
[2023-05-28 07:16] LABS: ALANINE AMINOTRANSFERASE 34 IU/L (13-61); ALBUMIN 1.7 g/dL (3.4-5.0); ASPARTATE AMINOTRANSFERASE 54 IU/L (15-37); BILIRUBIN TOTAL 2.1 mg/dL (0.1-1.0); CARBON DIOXIDE 30 mEq/L (21-32); CREATININE 0.5 mg/dL (0.6-1.3); GLUCOSE 263 mg/dL (70-105); PROTEIN TOTAL 5.6 g/dL (6.0-8.3); UREA NITROGEN BLOOD 26 mg/dL (7-21)
[2023-05-28] MEDS: INSULIN LISPRO 100 UNITS/ML SUBCUT SCH ×3 (07:16→17:44)
[2023-05-28] MEDS: PREDNISONE 20MG TABLET PO SCH ×2 (08:39→17:43)
[2023-05-28] MEDS: FUROSEMIDE 40MG/4ML VIAL IVP SCH (08:39)
[2023-05-28] MEDS: MENTHOL/LANOLIN/CALAMINE/ZN OX OINT 71GM TOP SCH ×2 (08:39→17:43)
[2023-05-28] MEDS: PANTOPRAZOLE SODIUM 40 MG/VIAL IV SCH ×2 (08:39→21:20)
[2023-05-28] MEDS ORDERED: FENTANYL 2500MCG/250ML PMX 250 ML IV ONE (08:45)
[2023-05-28 09:01] LABS: BG BASE EXCESS 6.9 mmol/L (-2.0-2.0); BG CARBOXYHEMOGLOBIN 0.6 % (0.5-1.5); BG DEOXYHEMOGLOBIN 8.2 % (0.0-5.0); BG FRACTION INSPIRED OXYGEN 80; BG HCO3 ACT 31.4 mmol/L (22.0-26.0); BG OXYGEN SATURATION 91.8 % (92.0-98.5); BG OXYHEMOGLOBIN 91.2 % (94.0-97.0); BG PCO2 44.7 mmHg (35.0-45.0); BG PH 7.464 (7.350-7.450); BG PO2 65.9 mmHg (75.0-100.0); BG SAMPLE SITE RIGHT RADIAL; BG TOTAL HEMOGLOBIN 10.1 g/dL (12.0-18.0); BG VENT MODE VENT - PRVC
[2023-05-28 09:04] LABS: HEMATOCRIT. 28.4 % (36.0-48.0); HEMOGLOBIN. 9.2 g/dL (12.0-16.0); MEAN CORPUSCULAR HGB CONC 32.5 g/dL (31.0-37.0); MEAN CORPUSCULAR VOLUME 107.7 fL (81.0-99.0); RED BLOOD CELL COUNT 2.64 mill/uL (4.2-5.4); RED CELL DISTRIBUTION WIDTH 30.2 % (11.6-14.6)
[2023-05-28 09:44] LABS: DIFFERENTIAL COMMENT 1
[2023-05-28] MEDS: FENTANYL CITRATE 2,500 MCG in SODIUM CHLORIDE 0.9% 200 ML IV PRN (10:43)
[2023-05-28 10:45] LABS: ANISOCYTOSIS 4+; NUCLEATED RED BLOOD CELLS 1 /100 WBC; TARGET CELLS FEW
[2023-05-28 10:46] LABS: PLATELET ESTIMATE MARKEDLY DECREASED
[2023-05-28 10:50] LABS: PLATELET 25 x1000/uL (130-400)
[2023-05-28] MEDS: DEXTROSE 5% WATER 1,000 ML IV SCH ×2 (11:23→21:03)
[2023-05-28] MEDS: ACETAMINOPHEN 325MG TABLET PO PRN (14:33)
[2023-05-28] MEDS: MEROPENEM 1,000 MG in SODIUM CHLORIDE 0.9% 100 ML IV SCH (16:28)
[2023-05-28] MEDS ORDERED: LACTULOSE 20G/30ML UDC NG NR (16:30)
[2023-05-28] MEDS ORDERED: BISACODYL 10MG SUPP PR PRN (16:30)
[2023-05-29] VITALS (78 sets, daily range): BP systolic 72–194; BP diastolic 55–128; PULSE 79–152; RESP 7–33; TEMP 98.2–101.7
[2023-05-29] MEDS: IPRATROPIUM/ALBUTEROL 0.5-3(2.5)MG/3ML NEB HHN SCH ×6 (00:24→20:15)
[2023-05-29] MEDS: ACETYLCYSTEINE 100MG/ML 10% VIAL 4ML INH SCH ×3 (00:25→13:14)
[2023-05-29] MEDS: INSULIN LISPRO 100 UNITS/ML SUBCUT SCH ×5 (00:34→23:57)
[2023-05-29] MEDS: MEROPENEM 1,000 MG in SODIUM CHLORIDE 0.9% 100 ML IV SCH ×2 (03:04→15:10)
[2023-05-29] MEDS: BLOOD SUGAR DIAGNOSTIC STRIP TEST SCH ×5 (06:00→23:54)
[2023-05-29] MEDS: FENTANYL CITRATE 2,500 MCG in SODIUM CHLORIDE 0.9% 200 ML IV PRN (07:03)
[2023-05-29 07:21] LABS: CHLORIDE 111 mEq/L (98-107); INDEX HEMOLYSI 4 (1-3); INDEX ICTERIC 1 (1-4); INDEX LIPEMIC 1 (1-3); SODIUM 144 mEq/L (136-145)
[2023-05-29 07:32] LABS: ALANINE AMINOTRANSFERASE 35 IU/L (13-61); ALBUMIN 1.6 g/dL (3.4-5.0); ASPARTATE AMINOTRANSFERASE 70 IU/L (15-37); BILIRUBIN TOTAL 1.9 mg/dL (0.1-1.0); CALCIUM 7.4 mg/dL (8.5-10.1); CARBON DIOXIDE 30 mEq/L (21-32); CREATININE 0.4 mg/dL (0.6-1.3); GLUCOSE 217 mg/dL (70-105); PROTEIN TOTAL 5.6 g/dL (6.0-8.3); UREA NITROGEN BLOOD 24 mg/dL (7-21)
[2023-05-29 08:50] LABS: BG BASE EXCESS 6.7 mmol/L (-2.0-2.0); BG CARBOXYHEMOGLOBIN 0.5 % (0.5-1.5); BG FRACTION INSPIRED OXYGEN 90; BG HCO3 ACT 30.7 mmol/L (22.0-26.0); BG METHEMOGLOBIN 0.2 % (0.0-1.5); BG OXYHEMOGLOBIN 95.3 % (94.0-97.0); BG PCO2 41.7 mmHg (35.0-45.0); BG PH 7.485 (7.350-7.450); BG PO2 88.3 mmHg (75.0-100.0); BG SAMPLE SITE RIGHT RADIAL; BG TOTAL HEMOGLOBIN 9.2 g/dL (12.0-18.0); BG TOTAL RESPIRATORY RATE 23 b/min; BG VENT MODE PRVC
[2023-05-29] MEDS: DOCUSATE SODIUM SUGAR FREE 100MG/10ML UDC NG SCH (09:18)
[2023-05-29] MEDS: MENTHOL/LANOLIN/CALAMINE/ZN OX OINT 71GM TOP SCH ×2 (09:18→17:42)
[2023-05-29] MEDS: FUROSEMIDE 40MG/4ML VIAL IVP SCH (09:18)
[2023-05-29] MEDS: PREDNISONE 20MG TABLET PO SCH ×2 (09:19→18:16)
[2023-05-29] MEDS: PANTOPRAZOLE SODIUM 40 MG/VIAL IV SCH ×2 (09:19→21:30)
[2023-05-29 11:18] LABS: HEMATOCRIT. 26.5 % (36.0-48.0); HEMOGLOBIN. 8.5 g/dL (12.0-16.0); MEAN CORPUSCULAR HEMOGLOBIN 34.7 pg (28.0-32.0); MEAN CORPUSCULAR HGB CONC 32.2 g/dL (31.0-37.0); MEAN CORPUSCULAR VOLUME 107.7 fL (81.0-99.0); MEAN PLATELET VOLUME 8.9 fl (7.4-10.4); RED BLOOD CELL COUNT 2.46 mill/uL (4.2-5.4); RED CELL DISTRIBUTION WIDTH 29.1 % (11.6-14.6); WHITE BLOOD COUNT 19.3 x1000/uL (4.5-11.0)
[2023-05-29 11:44] LABS: DIFFERENTIAL COMMENT 1
[2023-05-29 11:48] LABS: PLATELET 16 x1000/uL (130-400)
[2023-05-29 12:18] LABS: ANISOCYTOSIS 4+
[2023-05-29 12:20] LABS: PLATELET ESTIMATE MARKEDLY DECREASED
[2023-05-29] MEDS: PROPOFOL 10MG/ML 100ML 100 ML IV PRN ×2 (13:22→23:03)
[2023-05-29] MEDS: ACETAMINOPHEN 325MG TABLET PO PRN ×2 (15:10→16:10)
[2023-05-29] MEDS ORDERED: LACTULOSE 20G/30ML UDC PO NR (15:45)
[2023-05-29] MEDS ORDERED: IOHEXOL-350 100 ML BOTTLE ONE (21:50)
[2023-05-30] VITALS (60 sets, daily range): BP systolic 100–146; BP diastolic 51–88; PULSE 80–105; RESP 13–27; TEMP 97.7–99.8
[2023-05-30] MEDS: ACETYLCYSTEINE 100MG/ML 10% VIAL 4ML INH SCH ×3 (00:17→16:04)
[2023-05-30] MEDS: IPRATROPIUM/ALBUTEROL 0.5-3(2.5)MG/3ML NEB HHN SCH ×6 (00:17→20:26)
[2023-05-30] MEDS: FENTANYL CITRATE 2,500 MCG in SODIUM CHLORIDE 0.9% 200 ML IV PRN (00:42)
[2023-05-30] MEDS: MEROPENEM 1,000 MG in SODIUM CHLORIDE 0.9% 100 ML IV SCH ×2 (03:27→15:11)
[2023-05-30 05:25] LABS: HEMATOCRIT. 23.6 % (36.0-48.0); HEMOGLOBIN. 7.5 g/dL (12.0-16.0); MEAN CORPUSCULAR HEMOGLOBIN 34.8 pg (28.0-32.0); MEAN CORPUSCULAR HGB CONC 31.7 g/dL (31.0-37.0); MEAN CORPUSCULAR VOLUME 109.8 fL (81.0-99.0); MEAN PLATELET VOLUME 9.5 fl (7.4-10.4); RED BLOOD CELL COUNT 2.15 mill/uL (4.2-5.4); RED CELL DISTRIBUTION WIDTH 29.1 % (11.6-14.6); WHITE BLOOD COUNT 14.6 x1000/uL (4.5-11.0)
[2023-05-30 05:34] LABS: CHLORIDE 109 mEq/L (98-107); INDEX HEMOLYSI 1 (1-3); INDEX ICTERIC 1 (1-4); INDEX LIPEMIC 1 (1-3); POTASSIUM 3.4 mEq/L (3.5-5.1); SODIUM 144 mEq/L (136-145)
[2023-05-30 05:41] LABS: ALANINE AMINOTRANSFERASE 32 IU/L (13-61); ALBUMIN 1.7 g/dL (3.4-5.0); ASPARTATE AMINOTRANSFERASE 47 IU/L (15-37); BILIRUBIN TOTAL 1.4 mg/dL (0.1-1.0); CALCIUM 7.8 mg/dL (8.5-10.1); CARBON DIOXIDE 33 mEq/L (21-32); CREATININE 0.5 mg/dL (0.6-1.3); GLUCOSE 189 mg/dL (70-105); PHOSPHORUS 2.1 mg/dL (2.5-4.9); PROTEIN TOTAL 5.8 g/dL (6.0-8.3); TRIGLYCERIDE 178 mg/dL (0-150); UREA NITROGEN BLOOD 24 mg/dL (7-21)
[2023-05-30 06:38] LABS: DIFFERENTIAL COMMENT 1; PLATELET 40 x1000/uL (130-400)
[2023-05-30] MEDS: BLOOD SUGAR DIAGNOSTIC STRIP TEST SCH ×3 (06:59→18:37)
[2023-05-30] MEDS: INSULIN LISPRO 100 UNITS/ML SUBCUT SCH ×3 (07:03→18:38)
[2023-05-30 08:56] LABS: BG BASE EXCESS 8.7 mmol/L (-2.0-2.0); BG CARBOXYHEMOGLOBIN 0.8 % (0.5-1.5); BG DEOXYHEMOGLOBIN 5.3 % (0.0-5.0); BG FRACTION INSPIRED OXYGEN 90; BG HCO3 ACT 33.5 mmol/L (22.0-26.0); BG METHEMOGLOBIN 0.2 % (0.0-1.5); BG OXYGEN SATURATION 94.6 % (92.0-98.5); BG OXYHEMOGLOBIN 93.7 % (94.0-97.0); BG PCO2 48.1 mmHg (35.0-45.0); BG PH 7.461 (7.350-7.450); BG PO2 76.5 mmHg (75.0-100.0); BG SAMPLE SITE RIGHT RADIAL; BG TOTAL HEMOGLOBIN 8.6 g/dL (12.0-18.0); BG TOTAL RESPIRATORY RATE 20 b/min; BG VENT MODE PRVC
[2023-05-30] MEDS ORDERED: POTASSIUM PHOS,M-BASIC-D-BASIC 20 MMOL in DEXT 5% WATER 243.3333 ML IV SCH (09:00)
[2023-05-30] MEDS: PREDNISONE 20MG TABLET PO SCH (09:00)
[2023-05-30] MEDS: FUROSEMIDE 40MG/4ML VIAL IVP SCH (09:00)
[2023-05-30] MEDS: PANTOPRAZOLE SODIUM 40 MG/VIAL IV SCH ×2 (09:00→22:08)
[2023-05-30] MEDS: DOCUSATE SODIUM SUGAR FREE 100MG/10ML UDC NG SCH (09:01)
[2023-05-30] MEDS: MENTHOL/LANOLIN/CALAMINE/ZN OX OINT 71GM TOP SCH ×2 (09:02→17:31)
[2023-05-30 09:39] LABS: ANISOCYTOSIS 2+; NUCLEATED RED BLOOD CELLS 1 /100 WBC; PLATELET ESTIMATE MARKEDLY DECREASED
[2023-05-30] MEDS: PROPOFOL 10MG/ML 100ML 100 ML IV PRN ×2 (11:23→19:32)
[2023-05-30] MEDS: PREDNISONE 10MG TABLET PO SCH (18:37)
[2023-05-30] MEDS ORDERED: ACETYLCYSTEINE 100MG/ML 10% VIAL 4ML INH SCH (22:00)
[2023-05-31] VITALS (66 sets, daily range): BP systolic 98–162; BP diastolic 54–86; PULSE 82–121; RESP 11–39; TEMP 97.6–99.2
[2023-05-31] MEDS: IPRATROPIUM/ALBUTEROL 0.5-3(2.5)MG/3ML NEB HHN SCH ×6 (00:26→20:15)
[2023-05-31] MEDS: BLOOD SUGAR DIAGNOSTIC STRIP TEST SCH ×4 (00:26→18:54)
[2023-05-31] MEDS: ACETYLCYSTEINE 100MG/ML 10% VIAL 4ML INH SCH ×3 (00:26→15:54)
[2023-05-31] MEDS: INSULIN LISPRO 100 UNITS/ML SUBCUT SCH ×5 (00:32→23:27)
[2023-05-31] MEDS: PROPOFOL 10MG/ML 100ML 100 ML IV PRN ×3 (00:33→22:12)
[2023-05-31] MEDS: METOCLOPRAMIDE HCL 10MG/2ML VIAL IV SCH ×4 (00:36→17:20)
[2023-05-31] MEDS: MEROPENEM 1,000 MG in SODIUM CHLORIDE 0.9% 100 ML IV SCH ×2 (03:29→17:17)
[2023-05-31 06:33] LABS: CHLORIDE 110 mEq/L (98-107); INDEX HEMOLYSI 2 (1-3); INDEX ICTERIC 1 (1-4); INDEX LIPEMIC 1 (1-3); POTASSIUM 3.7 mEq/L (3.5-5.1); SODIUM 146 mEq/L (136-145)
[2023-05-31 06:41] LABS: CALCIUM 7.7 mg/dL (8.5-10.1); CARBON DIOXIDE 33 mEq/L (21-32); CREATININE 0.4 mg/dL (0.6-1.3); GLUCOSE 157 mg/dL (70-105); PHOSPHORUS 2.3 mg/dL (2.5-4.9); TRIGLYCERIDE 143 mg/dL (0-150); UREA NITROGEN BLOOD 27 mg/dL (7-21)
[2023-05-31] MEDS: PANTOPRAZOLE SODIUM 40 MG/VIAL IV SCH ×2 (08:11→21:00)
[2023-05-31] MEDS: FUROSEMIDE 40MG/4ML VIAL IVP SCH (08:11)
[2023-05-31] MEDS: DOCUSATE SODIUM SUGAR FREE 100MG/10ML UDC NG SCH (08:12)
[2023-05-31] MEDS: PREDNISONE 10MG TABLET PO SCH ×2 (08:12→18:11)
[2023-05-31] MEDS: MENTHOL/LANOLIN/CALAMINE/ZN OX OINT 71GM TOP SCH ×2 (08:14→17:17)
[2023-05-31] MEDS: SORBITOL 70% SOLN 30ML PO SCH (08:14)
[2023-05-31 08:46] LABS: BG BASE EXCESS 7.8 mmol/L (-2.0-2.0); BG CARBOXYHEMOGLOBIN 0.5 % (0.5-1.5); BG DEOXYHEMOGLOBIN 1.7 % (0.0-5.0); BG FRACTION INSPIRED OXYGEN 90; BG HCO3 ACT 31.8 mmol/L (22.0-26.0); BG METHEMOGLOBIN 0.3 % (0.0-1.5); BG OXYGEN SATURATION 98.3 % (92.0-98.5); BG OXYHEMOGLOBIN 97.5 % (94.0-97.0); BG PCO2 42.2 mmHg (35.0-45.0); BG PH 7.495 (7.350-7.450); BG PO2 120.3 mmHg (75.0-100.0); BG SAMPLE SITE RIGHT RADIAL; BG TOTAL RESPIRATORY RATE 21 b/min; BG VENT MODE PRVC
[2023-05-31] MEDS ORDERED: PROPOFOL 10MG/ML 100ML 100 ML IV PRN (10:15)
[2023-05-31 10:45] LABS: HEMATOCRIT. 23.4 % (36.0-48.0); HEMOGLOBIN. 7.6 g/dL (12.0-16.0); MEAN CORPUSCULAR HEMOGLOBIN 35.4 pg (28.0-32.0); MEAN CORPUSCULAR HGB CONC 32.4 g/dL (31.0-37.0); MEAN CORPUSCULAR VOLUME 109.4 fL (81.0-99.0); MEAN PLATELET VOLUME 10.3 fl (7.4-10.4); RED BLOOD CELL COUNT 2.14 mill/uL (4.2-5.4); RED CELL DISTRIBUTION WIDTH 27.5 % (11.6-14.6); WHITE BLOOD COUNT 14.1 x1000/uL (4.5-11.0)
[2023-05-31 10:56] LABS: PLATELET 25 x1000/uL (130-400)
[2023-05-31 10:57] LABS: DIFFERENTIAL COMMENT 1
[2023-05-31 11:27] LABS: INDEX HEMOLYSI 4 (1-3)
[2023-05-31 11:41] LABS: LACTATE DEHYDROGENASE 992 IU/L (100-240)
[2023-05-31 11:48] LABS: NUCLEATED RED BLOOD CELLS 4 /100 WBC; PLATELET ESTIMATE MARKEDLY DECREASED
[2023-05-31 11:49] LABS: ANISOCYTOSIS 3+
[2023-05-31 13:28] LABS: PARTIAL THROMBOPLASTIN TIME 23.3 sec (23.4-31.0); PROTHROMBIN TIME 10.5 sec (9.6-11.0)
[2023-06-01] VITALS (71 sets, daily range): BP systolic 94–163; BP diastolic 55–92; PULSE 81–114; RESP 4–30; TEMP 98.3–101.4
[2023-06-01] MEDS: IPRATROPIUM/ALBUTEROL 0.5-3(2.5)MG/3ML NEB HHN SCH ×6 (00:05→20:39)
[2023-06-01] MEDS: ACETYLCYSTEINE 100MG/ML 10% VIAL 4ML INH SCH ×3 (00:05→11:57)
[2023-06-01] MEDS: METOCLOPRAMIDE HCL 10MG/2ML VIAL IV SCH ×4 (00:07→17:10)
[2023-06-01] MEDS: MEROPENEM 1,000 MG in SODIUM CHLORIDE 0.9% 100 ML IV SCH ×3 (02:00→17:10)
[2023-06-01] MEDS: FENTANYL CITRATE 2,500 MCG in SODIUM CHLORIDE 0.9% 200 ML IV PRN (02:15)
[2023-06-01] MEDS: PROPOFOL 10MG/ML 100ML 100 ML IV PRN ×3 (05:25→19:29)
[2023-06-01] MEDS: INSULIN LISPRO 100 UNITS/ML SUBCUT SCH ×3 (05:51→17:07)
[2023-06-01] MEDS: BLOOD SUGAR DIAGNOSTIC STRIP TEST SCH ×4 (05:51→17:07)
[2023-06-01] MEDS: PREDNISONE 10MG TABLET PO SCH (08:20)
[2023-06-01 08:38] LABS: BG BASE EXCESS 10.8 mmol/L (-2.0-2.0); BG CARBOXYHEMOGLOBIN 0.9 % (0.5-1.5); BG DEOXYHEMOGLOBIN 8.1 % (0.0-5.0); BG FRACTION INSPIRED OXYGEN 80; BG HCO3 ACT 35.5 mmol/L (22.0-26.0); BG METHEMOGLOBIN 0.1 % (0.0-1.5); BG OXYGEN SATURATION 91.8 % (92.0-98.5); BG OXYHEMOGLOBIN 90.9 % (94.0-97.0); BG PCO2 47.6 mmHg (35.0-45.0); BG PO2 63.4 mmHg (75.0-100.0); BG SAMPLE SITE RIGHT RADIAL; BG TOTAL HEMOGLOBIN 10.6 g/dL (12.0-18.0); BG VENT MODE VENT - PRVC
[2023-06-01] MEDS: DOCUSATE SODIUM SUGAR FREE 100MG/10ML UDC NG SCH (08:45)
[2023-06-01] MEDS: SORBITOL 70% SOLN 30ML PO SCH (08:46)
[2023-06-01] MEDS: PANTOPRAZOLE SODIUM 40 MG/VIAL IV SCH ×2 (08:57→22:38)
[2023-06-01] MEDS: FUROSEMIDE 40MG/4ML VIAL IVP SCH (08:57)
[2023-06-01] MEDS: MENTHOL/LANOLIN/CALAMINE/ZN OX OINT 71GM TOP SCH ×2 (08:57→17:09)
[2023-06-01 10:02] LABS: BASOPHILS % 0.3 % (0.0-2.0); EOSINOPHILS % 1.6 % (0.0-5.0); LYMPHOCYTES % 11.1 % (20.0-50.0); MEAN CORPUSCULAR HEMOGLOBIN 35.9 pg (28.0-32.0); MEAN CORPUSCULAR HGB CONC 31.5 g/dL (31.0-37.0); MEAN CORPUSCULAR VOLUME 113.9 fL (81.0-99.0); MEAN PLATELET VOLUME 11.1 fl (7.4-10.4); MONOCYTES % 7.7 % (2.0-8.0); NEUTROPHILS % 79.3 % (40.0-76.0); RED CELL DISTRIBUTION WIDTH 28.5 % (11.6-14.6); WHITE BLOOD COUNT 7.8 x1000/uL (4.5-11.0)
[2023-06-01 10:08] LABS: CALCIUM 7.6 mg/dL (8.5-10.1); CARBON DIOXIDE 32 mEq/L (21-32); CHLORIDE 110 mEq/L (98-107); GLUCOSE 167 mg/dL (70-105); INDEX HEMOLYSI 4 (1-3); INDEX ICTERIC 1 (1-4); INDEX LIPEMIC 1 (1-3); SODIUM 147 mEq/L (136-145); UREA NITROGEN BLOOD 26 mg/dL (7-21)
[2023-06-01 10:11] LABS: DIFFERENTIAL COMMENT 1; HEMOGLOBIN. 6.1 g/dL (12.0-16.0); PLATELET 8 x1000/uL (130-400)
[2023-06-01 10:12] LABS: CREATININE 0.4 mg/dL (0.6-1.3); HEMATOCRIT. 19.4 % (36.0-48.0)
[2023-06-01 10:31] LABS: POTASSIUM 3.7 mEq/L (3.5-5.1)
[2023-06-01 17:02] LABS: HEMATOCRIT 28.2 % (36.0-48.0); HEMOGLOBIN 9.1 g/dL (12.0-16.0); MEAN CORPUSCULAR HEMOGLOBIN 32.7 pg (28.0-32.0); MEAN CORPUSCULAR HGB CONC 32.3 g/dL (31.0-37.0); MEAN CORPUSCULAR VOLUME 101.2 fL (81.0-99.0); RED BLOOD CELL COUNT 2.78 mill/uL (4.2-5.4); RED CELL DISTRIBUTION WIDTH 29.5 % (11.6-14.6); WHITE BLOOD COUNT 13.6 x1000/uL (4.5-11.0)
[2023-06-01 17:43] LABS: PLATELET 20 x1000/uL (130-400)
[2023-06-01] MEDS: ACETAMINOPHEN 325MG TABLET PO PRN ×2 (18:31→22:38)
[2023-06-01] MEDS ORDERED: FENTANYL CITRATE 2,500 MCG in SODIUM CHLORIDE 0.9% 200 ML IV PRN (19:14)
[2023-06-02] VITALS (76 sets, daily range): BP systolic 78–164; BP diastolic 43–120; PULSE 73–108; RESP 5–28; TEMP 98.6–99.8
[2023-06-02] MEDS: MICAFUNGIN 100 MG in SODIUM CHLORIDE 0.9% 100 ML IV SCH ×2 (00:15→21:30)
[2023-06-02] MEDS: METOCLOPRAMIDE HCL 10MG/2ML VIAL IV SCH ×2 (00:21→06:43)
[2023-06-02] MEDS: IPRATROPIUM/ALBUTEROL 0.5-3(2.5)MG/3ML NEB HHN SCH ×6 (00:31→23:50)
[2023-06-02] MEDS: ACETYLCYSTEINE 100MG/ML 10% VIAL 4ML INH SCH ×3 (00:31→23:49)
[2023-06-02] MEDS: INSULIN LISPRO 100 UNITS/ML SUBCUT SCH ×5 (00:54→23:33)
[2023-06-02] MEDS: PROPOFOL 10MG/ML 100ML 100 ML IV PRN ×2 (01:35→18:29)
[2023-06-02] MEDS: MEROPENEM 1,000 MG in SODIUM CHLORIDE 0.9% 100 ML IV SCH ×3 (02:49→21:31)
[2023-06-02] MEDS: BLOOD SUGAR DIAGNOSTIC STRIP TEST SCH ×5 (06:00→23:31)
[2023-06-02 07:47] LABS: MEAN CORPUSCULAR HEMOGLOBIN 35.5 pg (28.0-32.0); MEAN CORPUSCULAR HGB CONC 34.6 g/dL (31.0-37.0); MEAN CORPUSCULAR VOLUME 102.5 fL (81.0-99.0); MEAN PLATELET VOLUME 8.6 fl (7.4-10.4); RED BLOOD CELL COUNT 2.61 mill/uL (4.2-5.4); RED CELL DISTRIBUTION WIDTH 29.8 % (11.6-14.6); WHITE BLOOD COUNT 12.5 x1000/uL (4.5-11.0)
[2023-06-02 08:30] LABS: DIFFERENTIAL COMMENT 1
[2023-06-02 08:31] LABS: HEMATOCRIT. 26.7 % (36.0-48.0); HEMOGLOBIN. 9.2 g/dL (12.0-16.0)
[2023-06-02 08:33] LABS: PLATELET 48 x1000/uL (130-400)
[2023-06-02 08:38] LABS: CALCIUM 7.6 mg/dL (8.5-10.1); CHLORIDE 107 mEq/L (98-107); GLUCOSE 119 mg/dL (70-105); INDEX HEMOLYSI 1 (1-3); INDEX ICTERIC 1 (1-4); INDEX LIPEMIC 1 (1-3); SODIUM 146 mEq/L (136-145); UREA NITROGEN BLOOD 21 mg/dL (7-21)
[2023-06-02 08:40] LABS: POTASSIUM 2.7 mEq/L (3.5-5.1)
[2023-06-02 08:42] LABS: CARBON DIOXIDE 33 mEq/L (21-32); CREATININE 0.4 mg/dL (0.6-1.3); TRIGLYCERIDE 137 mg/dL (0-150)
[2023-06-02] MEDS ORDERED: FUROSEMIDE 20MG/2ML VIAL IVP SCH (09:00)
[2023-06-02] MEDS: SORBITOL 70% SOLN 30ML PO SCH (09:00)
[2023-06-02] MEDS: MENTHOL/LANOLIN/CALAMINE/ZN OX OINT 71GM TOP SCH ×2 (09:00→18:33)
[2023-06-02] MEDS ORDERED: POTASSIUM CHLORIDE 20MEQ TABLET SR PO NR (09:15)
[2023-06-02] MEDS ORDERED: POTASSIUM CHLORIDE INJ 40 MEQ in DEXT 5% WATER 500 ML IV ONE (09:15)
[2023-06-02] MEDS: PANTOPRAZOLE SODIUM 40 MG/VIAL IV SCH ×2 (09:18→21:00)
[2023-06-02] MEDS: PREDNISONE 10MG TABLET PO SCH (09:19)
[2023-06-02] MEDS: DOCUSATE SODIUM SUGAR FREE 100MG/10ML UDC NG SCH (09:19)
[2023-06-02] MEDS: KCL 20MEQ/100ML X 2 FOR TOTAL KCL 40MEQ/200ML IV SCH ×2 (09:19→12:07)
[2023-06-02] MEDS ORDERED: FENTANYL 2500MCG/250ML PMX 250 ML IV PRN (12:30)
[2023-06-02 14:12] LABS: PROTEIN BODY FLUID 2.9 gm/dL
[2023-06-02 14:41] LABS: BODY FLUID MONOCYTES 10 %
[2023-06-02 16:08] LABS: BODY FLUID WBC 350 /cu mm (0-200)
[2023-06-02 16:09] LABS: BODY FLUID RBC 228000 /cu mm (0-2000)
[2023-06-02] MEDS: FENTANYL CITRATE 2,500 MCG in SODIUM CHLORIDE 0.9% 200 ML IV PRN (17:04)
[2023-06-02 17:16] LABS: NUCLEATED RED BLOOD CELLS 1 /100 WBC
[2023-06-02 17:17] LABS: ANISOCYTOSIS 3+; PLATELET ESTIMATE MARKEDLY DECREASED
[2023-06-02] MEDS: ONDANSETRON HCL 4MG/2ML INJ IV PRN (21:29)
[2023-06-03] VITALS (65 sets, daily range): BP systolic 92–205; BP diastolic 53–109; PULSE 72–115; RESP 10–41; TEMP 98.2–99.8
[2023-06-03] MEDS: PROPOFOL 10MG/ML 100ML 100 ML IV PRN ×3 (01:32→20:06)
[2023-06-03] MEDS: IPRATROPIUM/ALBUTEROL 0.5-3(2.5)MG/3ML NEB HHN SCH ×4 (04:05→15:39)
[2023-06-03] MEDS: MEROPENEM 1,000 MG in SODIUM CHLORIDE 0.9% 100 ML IV SCH ×3 (05:06→21:15)
[2023-06-03] MEDS: BLOOD SUGAR DIAGNOSTIC STRIP TEST SCH ×4 (05:06→23:35)
[2023-06-03] MEDS: INSULIN LISPRO 100 UNITS/ML SUBCUT SCH ×4 (05:07→23:36)
[2023-06-03 05:52] LABS: BASOPHILS % 0.4 % (0.0-2.0); EOSINOPHILS % 4.4 % (0.0-5.0); HEMATOCRIT. 26.7 % (36.0-48.0); HEMOGLOBIN. 8.3 g/dL (12.0-16.0); LYMPHOCYTES % 8.5 % (20.0-50.0); MEAN CORPUSCULAR HEMOGLOBIN 32.8 pg (28.0-32.0); MEAN CORPUSCULAR VOLUME 105.8 fL (81.0-99.0); MEAN PLATELET VOLUME 8.9 fl (7.4-10.4); MONOCYTES % 6.7 % (2.0-8.0); RED BLOOD CELL COUNT 2.53 mill/uL (4.2-5.4); RED CELL DISTRIBUTION WIDTH 28.6 % (11.6-14.6); WHITE BLOOD COUNT 11.4 x1000/uL (4.5-11.0)
[2023-06-03 06:07] LABS: CHLORIDE 107 mEq/L (98-107); INDEX HEMOLYSI 1 (1-3); INDEX ICTERIC 1 (1-4); INDEX LIPEMIC 1 (1-3); POTASSIUM 3.8 mEq/L (3.5-5.1); SODIUM 144 mEq/L (136-145)
[2023-06-03 06:13] LABS: ALANINE AMINOTRANSFERASE 31 IU/L (13-61); ALBUMIN 1.7 g/dL (3.4-5.0); ASPARTATE AMINOTRANSFERASE 44 IU/L (15-37); BILIRUBIN DIRECT 1.6 mg/dL (0.0-0.2); CARBON DIOXIDE 32 mEq/L (21-32); CREATININE 0.7 mg/dL (0.6-1.3); GLUCOSE 189 mg/dL (70-105); PROTEIN TOTAL 6.2 g/dL (6.0-8.3); UREA NITROGEN BLOOD 31 mg/dL (7-21)
[2023-06-03 06:36] LABS: DIFFERENTIAL COMMENT 1
[2023-06-03 06:40] LABS: PLATELET 16 x1000/uL (130-400)
[2023-06-03] MEDS: DOCUSATE SODIUM SUGAR FREE 100MG/10ML UDC NG SCH (08:20)
[2023-06-03] MEDS: PREDNISONE 10MG TABLET PO SCH (08:20)
[2023-06-03] MEDS: PANTOPRAZOLE SODIUM 40 MG/VIAL IV SCH ×2 (08:20→21:15)
[2023-06-03] MEDS: ACETYLCYSTEINE 100MG/ML 10% VIAL 4ML INH SCH ×2 (08:32→15:38)
[2023-06-03] MEDS: MENTHOL/LANOLIN/CALAMINE/ZN OX OINT 71GM TOP SCH ×2 (09:00→17:00)
[2023-06-03] MEDS: FENTANYL CITRATE 2,500 MCG in SODIUM CHLORIDE 0.9% 200 ML IV PRN ×2 (09:45→22:36)
[2023-06-03] MEDS ORDERED: PROPOFOL 10MG/ML 100ML 100 ML IV PRN (10:45)
[2023-06-03 11:20] LABS: BG BASE EXCESS 7.7 mmol/L (-2.0-2.0); BG CARBOXYHEMOGLOBIN 0.4 % (0.5-1.5); BG DEOXYHEMOGLOBIN 13.9 % (0.0-5.0); BG FRACTION INSPIRED OXYGEN 30; BG HCO3 ACT 34.8 mmol/L (22.0-26.0); BG METHEMOGLOBIN 0.1 % (0.0-1.5); BG OXYHEMOGLOBIN 85.6 % (94.0-97.0); BG PCO2 63.8 mmHg (35.0-45.0); BG PH 7.355 (7.350-7.450); BG PO2 60.9 mmHg (75.0-100.0); BG SAMPLE SITE LEFT RADIAL; BG TOTAL HEMOGLOBIN 10.3 g/dL (12.0-18.0); BG VENT MODE PRVC-AC
[2023-06-03] MEDS: MICAFUNGIN 100 MG in SODIUM CHLORIDE 0.9% 100 ML IV SCH (21:15)
[2023-06-04] VITALS (106 sets, daily range): BP systolic 101–224; BP diastolic 58–115; PULSE 87–112; RESP 15–25; TEMP 97.8–99.7
[2023-06-04] MEDS: IPRATROPIUM/ALBUTEROL 0.5-3(2.5)MG/3ML NEB HHN SCH ×6 (00:04→23:17)
[2023-06-04] MEDS: PROPOFOL 10MG/ML 100ML 100 ML IV PRN ×2 (05:02→21:36)
[2023-06-04] MEDS: MEROPENEM 1,000 MG in SODIUM CHLORIDE 0.9% 100 ML IV SCH ×3 (05:02→21:35)
[2023-06-04] MEDS: BLOOD SUGAR DIAGNOSTIC STRIP TEST SCH ×4 (05:29→23:25)
[2023-06-04] MEDS: INSULIN LISPRO 100 UNITS/ML SUBCUT SCH ×4 (05:33→23:26)
[2023-06-04 06:01] LABS: PROTHROMBIN TIME 10.8 sec (9.6-11.0)
[2023-06-04 06:02] LABS: CHLORIDE 110 mEq/L (98-107); INDEX HEMOLYSI 4 (1-3); INDEX ICTERIC 1 (1-4); INDEX LIPEMIC 1 (1-3); SODIUM 146 mEq/L (136-145)
[2023-06-04 06:11] LABS: ALANINE AMINOTRANSFERASE 23 IU/L (13-61); ALBUMIN 1.3 g/dL (3.4-5.0); ASPARTATE AMINOTRANSFERASE 43 IU/L (15-37); BILIRUBIN TOTAL 1.7 mg/dL (0.1-1.0); CALCIUM 7.4 mg/dL (8.5-10.1); CARBON DIOXIDE 33 mEq/L (21-32); CREATININE 0.5 mg/dL (0.6-1.3); GLUCOSE 173 mg/dL (70-105); PROTEIN TOTAL 4.9 g/dL (6.0-8.3); TRIGLYCERIDE 125 mg/dL (0-150); UREA NITROGEN BLOOD 28 mg/dL (7-21)
[2023-06-04 06:12] LABS: POTASSIUM 4.7 mEq/L (3.5-5.1)
[2023-06-04 06:30] LABS: HEMATOCRIT. 25.5 % (36.0-48.0); HEMOGLOBIN. 7.9 g/dL (12.0-16.0); MEAN CORPUSCULAR HEMOGLOBIN 33.6 pg (28.0-32.0); MEAN CORPUSCULAR HGB CONC 30.9 g/dL (31.0-37.0); MEAN PLATELET VOLUME 8.5 fl (7.4-10.4); RED BLOOD CELL COUNT 2.34 mill/uL (4.2-5.4); RED CELL DISTRIBUTION WIDTH 28.8 % (11.6-14.6); WHITE BLOOD COUNT 12.5 x1000/uL (4.5-11.0)
[2023-06-04 06:38] LABS: DIFFERENTIAL COMMENT 1
[2023-06-04 06:40] LABS: PLATELET 25 x1000/uL (130-400)
[2023-06-04] MEDS: DOCUSATE SODIUM SUGAR FREE 100MG/10ML UDC NG SCH (08:42)
[2023-06-04] MEDS: PANTOPRAZOLE SODIUM 40 MG/VIAL IV SCH ×2 (08:42→21:35)
[2023-06-04] MEDS: PREDNISONE 10MG TABLET PO SCH (08:43)
[2023-06-04] MEDS: MENTHOL/LANOLIN/CALAMINE/ZN OX OINT 71GM TOP SCH ×2 (08:43→17:20)
[2023-06-04] MEDS: ACETYLCYSTEINE 100MG/ML 10% VIAL 4ML INH SCH ×2 (08:44→23:18)
[2023-06-04 09:11] LABS: BG BASE EXCESS 8.5 mmol/L (-2.0-2.0); BG CARBOXYHEMOGLOBIN 1.4 % (0.5-1.5); BG DEOXYHEMOGLOBIN 6.1 % (0.0-5.0); BG FRACTION INSPIRED OXYGEN 100; BG HCO3 ACT 36.2 mmol/L (22.0-26.0); BG METHEMOGLOBIN 0.1 % (0.0-1.5); BG OXYGEN SATURATION 93.8 % (92.0-98.5); BG OXYHEMOGLOBIN 92.4 % (94.0-97.0); BG PH 7.325 (7.350-7.450); BG PO2 80.2 mmHg (75.0-100.0); BG SAMPLE SITE RIGHT RADIAL; BG TOTAL HEMOGLOBIN 9.4 g/dL (12.0-18.0); BG VENT MODE PRVC-AC
[2023-06-04 11:59] LABS: NUCLEATED RED BLOOD CELLS 2 /100 WBC
[2023-06-04 12:02] LABS: ANISOCYTOSIS 2+
[2023-06-04 12:03] LABS: PLATELET ESTIMATE MARKEDLY DECREASED
[2023-06-04] MEDS: FENTANYL CITRATE 2,500 MCG in SODIUM CHLORIDE 0.9% 200 ML IV PRN (12:40)
[2023-06-04] MEDS: METHYLPREDNISOLONE SOD SUCC 40MG VIAL IV SCH ×2 (12:40→21:35)
[2023-06-04] MEDS: CLONIDINE 0.1MG TABLET PO PRN (14:24)
[2023-06-04 21:00] LABS: BG CARBOXYHEMOGLOBIN 1.6 % (0.5-1.5); BG DEOXYHEMOGLOBIN 13.3 % (0.0-5.0); BG FRACTION INSPIRED OXYGEN 95; BG HCO3 ACT 34.9 mmol/L (22.0-26.0); BG METHEMOGLOBIN 0.3 % (0.0-1.5); BG OXYGEN SATURATION 86.4 % (92.0-98.5); BG OXYHEMOGLOBIN 84.8 % (94.0-97.0); BG PCO2 63.9 mmHg (35.0-45.0); BG PH 7.355 (7.350-7.450); BG PO2 57.3 mmHg (75.0-100.0); BG SAMPLE SITE RIGHT RADIAL; BG TOTAL HEMOGLOBIN 9.2 g/dL (12.0-18.0); BG TOTAL RESPIRATORY RATE 21 b/min; BG VENT MODE VENT - PRVC
[2023-06-04] MEDS: MICAFUNGIN 100 MG in SODIUM CHLORIDE 0.9% 100 ML IV SCH (21:35)
[2023-06-05] VITALS (168 sets, daily range): BP systolic 100–176; BP diastolic 47–105; PULSE 61–125; RESP 19–33; TEMP 97.2–99.5
[2023-06-05] MEDS: FENTANYL CITRATE 2,500 MCG in SODIUM CHLORIDE 0.9% 200 ML IV PRN ×2 (01:17→18:48)
[2023-06-05] MEDS: IPRATROPIUM/ALBUTEROL 0.5-3(2.5)MG/3ML NEB HHN SCH ×4 (04:02→20:32)
[2023-06-05] MEDS: INSULIN LISPRO 100 UNITS/ML SUBCUT SCH ×3 (06:00→17:24)
[2023-06-05 06:02] LABS: INR 1.1; PARTIAL THROMBOPLASTIN TIME 21.2 sec (23.4-31.0); PROTHROMBIN TIME 12.1 sec (9.6-11.0)
[2023-06-05 06:03] LABS: HEMATOCRIT. 24.8 % (36.0-48.0); HEMOGLOBIN. 7.7 g/dL (12.0-16.0); MEAN CORPUSCULAR HEMOGLOBIN 33.9 pg (28.0-32.0); MEAN CORPUSCULAR HGB CONC 31.2 g/dL (31.0-37.0); MEAN CORPUSCULAR VOLUME 108.7 fL (81.0-99.0); MEAN PLATELET VOLUME 9.7 fl (7.4-10.4); RED BLOOD CELL COUNT 2.28 mill/uL (4.2-5.4); RED CELL DISTRIBUTION WIDTH 27.6 % (11.6-14.6); WHITE BLOOD COUNT 13.4 x1000/uL (4.5-11.0)
[2023-06-05 06:22] LABS: CHLORIDE 109 mEq/L (98-107); INDEX HEMOLYSI 1 (1-3); INDEX ICTERIC 1 (1-4); INDEX LIPEMIC 1 (1-3); POTASSIUM 5.2 mEq/L (3.5-5.1); SODIUM 145 mEq/L (136-145)
[2023-06-05] MEDS: BLOOD SUGAR DIAGNOSTIC STRIP TEST SCH ×3 (06:30→17:24)
[2023-06-05 06:31] LABS: CALCIUM 8.3 mg/dL (8.5-10.1); CARBON DIOXIDE 34 mEq/L (21-32); CREATININE 0.4 mg/dL (0.6-1.3); GLUCOSE 167 mg/dL (70-105); TRIGLYCERIDE 131 mg/dL (0-150); UREA NITROGEN BLOOD 25 mg/dL (7-21)
[2023-06-05] MEDS: METHYLPREDNISOLONE SOD SUCC 40MG VIAL IV SCH ×2 (06:36→14:00)
[2023-06-05] MEDS: MEROPENEM 1,000 MG in SODIUM CHLORIDE 0.9% 100 ML IV SCH ×3 (06:37→21:33)
[2023-06-05 06:38] LABS: DIFFERENTIAL COMMENT 1
[2023-06-05] MEDS: PROPOFOL 10MG/ML 100ML 100 ML IV PRN ×3 (06:49→22:55)
[2023-06-05] MEDS ORDERED: SODIUM POLYSTYRENE SULFONATE 15 G/60 ML BOT PO SCH (08:00)
[2023-06-05 08:30] LABS: BG BASE EXCESS 8.5 mmol/L (-2.0-2.0); BG CARBOXYHEMOGLOBIN 1.5 % (0.5-1.5); BG DEOXYHEMOGLOBIN 14.9 % (0.0-5.0); BG FRACTION INSPIRED OXYGEN 100; BG HCO3 ACT 33.4 mmol/L (22.0-26.0); BG METHEMOGLOBIN 0.1 % (0.0-1.5); BG OXYGEN SATURATION 84.9 % (92.0-98.5); BG OXYHEMOGLOBIN 83.5 % (94.0-97.0); BG PCO2 49.1 mmHg (35.0-45.0); BG PH 7.451 (7.350-7.450); BG PO2 50.6 mmHg (75.0-100.0); BG SAMPLE SITE RIGHT RADIAL; BG TOTAL HEMOGLOBIN 7.9 g/dL (12.0-18.0); BG VENT MODE PRVC
[2023-06-05] MEDS: ACETYLCYSTEINE 100MG/ML 10% VIAL 4ML INH SCH (08:35)
[2023-06-05] MEDS: DOCUSATE SODIUM SUGAR FREE 100MG/10ML UDC NG SCH (08:47)
[2023-06-05] MEDS: MENTHOL/LANOLIN/CALAMINE/ZN OX OINT 71GM TOP SCH ×2 (08:55→18:07)
[2023-06-05] MEDS: PANTOPRAZOLE SODIUM 40 MG/VIAL IV SCH ×2 (08:55→21:32)
[2023-06-05] MEDS ORDERED: MIDAZOLAM HCL 2 MG/2 ML VIAL ONE (11:51)
[2023-06-05] MEDS ORDERED: FENTANYL CITRATE/PF 50MCG/ML 2ML VIAL ONE (11:51)
[2023-06-05] MEDS ORDERED: PROPOFOL 200MG/20ML VIAL IV ONE (12:03)
[2023-06-05 12:17] LABS: HEMOGLOBIN. 7.3 g/dL (12.0-16.0); MEAN CORPUSCULAR HEMOGLOBIN 33.4 pg (28.0-32.0); MEAN CORPUSCULAR HGB CONC 31.6 g/dL (31.0-37.0); MEAN CORPUSCULAR VOLUME 105.8 fL (81.0-99.0); MEAN PLATELET VOLUME 12.2 fl (7.4-10.4); RED BLOOD CELL COUNT 2.17 mill/uL (4.2-5.4); RED CELL DISTRIBUTION WIDTH 26.8 % (11.6-14.6); WHITE BLOOD COUNT 11.8 x1000/uL (4.5-11.0)
[2023-06-05] MEDS ORDERED: ROCURONIUM BROMIDE 10MG/ML VIAL 5ML IV ONE (12:22)
[2023-06-05 12:27] LABS: DIFFERENTIAL COMMENT 1
[2023-06-05 13:31] LABS: BG BASE EXCESS -5.8 mmol/L (-2.0-2.0); BG CARBOXYHEMOGLOBIN 0.8 % (0.5-1.5); BG HCO3 ACT 28.2 mmol/L (22.0-26.0); BG METHEMOGLOBIN 0.2 % (0.0-1.5); BG OXYGEN SATURATION 29.3 % (92.0-98.5); BG PCO2 131.7 mmHg (35.0-45.0); BG PH 6.949 (7.350-7.450); BG PO2 32.6 mmHg (75.0-100.0); BG SAMPLE SITE RIGHT RADIAL; BG TOTAL HEMOGLOBIN 10.4 g/dL (12.0-18.0); BG VENT MODE VENT - SIMV
[2023-06-05 14:20] LABS: ANISOCYTOSIS 4+; PLATELET ESTIMATE MARKEDLY DECREASED
[2023-06-05 14:21] LABS: PLATELET 11 x1000/uL (130-400)
[2023-06-05] MEDS: FUROSEMIDE 40MG/4ML VIAL IVP SCH ×2 (14:40→18:07)
[2023-06-05 15:00] LABS: NUCLEATED RED BLOOD CELLS 1 /100 WBC
[2023-06-05] MEDS ORDERED: METHYLPREDNISOLONE SOD SUCC 500 MG in DEXT 5% WATER 100 ML IV SCH (15:00)
[2023-06-05 15:06] LABS: ANISOCYTOSIS 4+; HYPOCHROMASIA 1+; PLATELET ESTIMATE MARKEDLY DECREASED
[2023-06-05 15:08] LABS: PLATELET 12 x1000/uL (130-400)
[2023-06-05 15:11] LABS: BG BASE EXCESS 0.4 mmol/L (-2.0-2.0); BG CARBOXYHEMOGLOBIN 1.8 % (0.5-1.5); BG DEOXYHEMOGLOBIN 25.5 % (0.0-5.0); BG FRACTION INSPIRED OXYGEN 100; BG HCO3 ACT 28.1 mmol/L (22.0-26.0); BG METHEMOGLOBIN 0.1 % (0.0-1.5); BG OXYHEMOGLOBIN 72.6 % (94.0-97.0); BG PCO2 63.2 mmHg (35.0-45.0); BG PH 7.266 (7.350-7.450); BG PO2 49.2 mmHg (75.0-100.0); BG SAMPLE SITE RIGHT BRACHIAL; BG TOTAL HEMOGLOBIN 9.4 g/dL (12.0-18.0); BG TOTAL RESPIRATORY RATE 24 b/min; BG VENT MODE VENT - AC
[2023-06-05 16:32] LABS: BG BASE EXCESS 2.6 mmol/L (-2.0-2.0); BG CARBOXYHEMOGLOBIN 1.4 % (0.5-1.5); BG DEOXYHEMOGLOBIN 18.7 % (0.0-5.0); BG HCO3 ACT 29.4 mmol/L (22.0-26.0); BG METHEMOGLOBIN 0.3 % (0.0-1.5); BG OXYHEMOGLOBIN 79.6 % (94.0-97.0); BG PCO2 57.4 mmHg (35.0-45.0); BG PH 7.327 (7.350-7.450); BG PO2 51.3 mmHg (75.0-100.0); BG SAMPLE SITE LEFT RADIAL; BG VENT MODE VENT- PRVC
[2023-06-05 17:23] LABS: CHLORIDE 110 mEq/L (98-107); INDEX HEMOLYSI 2 (1-3); INDEX ICTERIC 2 (1-4); INDEX LIPEMIC 1 (1-3); POTASSIUM 5.5 mEq/L (3.5-5.1); SODIUM 145 mEq/L (136-145)
[2023-06-05 17:31] LABS: CARBON DIOXIDE 28 mEq/L (21-32); CREATININE 0.5 mg/dL (0.6-1.3); GLUCOSE 227 mg/dL (70-105); UREA NITROGEN BLOOD 40 mg/dL (7-21)
[2023-06-05 19:57] LABS: DIFFERENTIAL COMMENT 1; HEMATOCRIT. 24.1 % (36.0-48.0); HEMOGLOBIN. 7.5 g/dL (12.0-16.0); MEAN CORPUSCULAR HEMOGLOBIN 33.7 pg (28.0-32.0); MEAN CORPUSCULAR VOLUME 108.6 fL (81.0-99.0); MEAN PLATELET VOLUME 7.5 fl (7.4-10.4); RED BLOOD CELL COUNT 2.22 mill/uL (4.2-5.4); RED CELL DISTRIBUTION WIDTH 27.1 % (11.6-14.6); WHITE BLOOD COUNT 14.5 x1000/uL (4.5-11.0)
[2023-06-05 20:06] LABS: PLATELET 35 x1000/uL (130-400)
[2023-06-05] MEDS: MICAFUNGIN 100 MG in SODIUM CHLORIDE 0.9% 100 ML IV SCH (21:32)
[2023-06-05 23:50] LABS: NUCLEATED RED BLOOD CELLS 3 /100 WBC; PLATELET ESTIMATE MARKEDLY DECREASED
[2023-06-05 23:51] LABS: ANISOCYTOSIS 3+
[2023-06-05 23:52] LABS: HYPOCHROMASIA 1+
[2023-06-06] VITALS (134 sets, daily range): BP systolic 112–150; BP diastolic 62–84; PULSE 70–85; RESP 17–31; TEMP 97.3–99.6
[2023-06-06] MEDS: IPRATROPIUM/ALBUTEROL 0.5-3(2.5)MG/3ML NEB HHN SCH ×6 (00:25→21:01)
[2023-06-06] MEDS: METHYLPREDNISOLONE SOD SUCC 125MG VIAL IV SCH ×5 (02:30→23:46)
[2023-06-06] MEDS: MEROPENEM 1,000 MG in SODIUM CHLORIDE 0.9% 100 ML IV SCH ×3 (05:59→21:26)
[2023-06-06] MEDS: INSULIN LISPRO 100 UNITS/ML SUBCUT SCH ×5 (06:00→23:49)
[2023-06-06] MEDS: BLOOD SUGAR DIAGNOSTIC STRIP TEST SCH ×5 (06:00→23:50)
[2023-06-06 06:44] LABS: INDEX HEMOLYSI 4 (1-3); INDEX ICTERIC 1 (1-4); INDEX LIPEMIC 1 (1-3)
[2023-06-06 06:45] LABS: CALCIUM 7.9 mg/dL (8.5-10.1); CHLORIDE 109 mEq/L (98-107); POTASSIUM 4.6 mEq/L (3.5-5.1); SODIUM 147 mEq/L (136-145)
[2023-06-06 06:51] LABS: ALANINE AMINOTRANSFERASE 34 IU/L (13-61); ALBUMIN 1.7 g/dL (3.4-5.0); ASPARTATE AMINOTRANSFERASE 53 IU/L (15-37); BILIRUBIN DIRECT 1.6 mg/dL (0.0-0.2); BILIRUBIN TOTAL 2.1 mg/dL (0.1-1.0); CARBON DIOXIDE 35 mEq/L (21-32); CREATININE 0.7 mg/dL (0.6-1.3); GLUCOSE 203 mg/dL (70-105); PROTEIN TOTAL 6.5 g/dL (6.0-8.3); TRIGLYCERIDE 182 mg/dL (0-150); UREA NITROGEN BLOOD 50 mg/dL (7-21)
[2023-06-06] MEDS: PROPOFOL 10MG/ML 100ML 100 ML IV PRN ×3 (06:51→23:45)
[2023-06-06] MEDS: FENTANYL CITRATE 2,500 MCG in SODIUM CHLORIDE 0.9% 200 ML IV PRN (06:51)
[2023-06-06] MEDS: MENTHOL/LANOLIN/CALAMINE/ZN OX OINT 71GM TOP SCH ×2 (09:11→17:16)
[2023-06-06] MEDS: FUROSEMIDE 40MG/4ML VIAL IVP SCH ×2 (09:11→17:07)
[2023-06-06] MEDS: PANTOPRAZOLE SODIUM 40 MG/VIAL IV SCH ×2 (09:11→21:25)
[2023-06-06] MEDS: DOCUSATE SODIUM SUGAR FREE 100MG/10ML UDC NG SCH (09:11)
[2023-06-06 09:59] LABS: HEMATOCRIT. 22.7 % (36.0-48.0); HEMOGLOBIN. 7.3 g/dL (12.0-16.0); MEAN CORPUSCULAR HEMOGLOBIN 33.7 pg (28.0-32.0); MEAN CORPUSCULAR HGB CONC 32.1 g/dL (31.0-37.0); MEAN CORPUSCULAR VOLUME 105.1 fL (81.0-99.0); RED BLOOD CELL COUNT 2.16 mill/uL (4.2-5.4); RED CELL DISTRIBUTION WIDTH 27.8 % (11.6-14.6); WHITE BLOOD COUNT 14.2 x1000/uL (4.5-11.0)
[2023-06-06 10:02] LABS: DIFFERENTIAL COMMENT 1
[2023-06-06 10:31] LABS: NUCLEATED RED BLOOD CELLS 3 /100 WBC
[2023-06-06 10:32] LABS: ANISOCYTOSIS 4+; PLATELET ESTIMATE MARKEDLY DECREASED
[2023-06-06 10:32] LABS: BG BASE EXCESS 6.9 mmol/L (-2.0-2.0); BG CARBOXYHEMOGLOBIN 1.3 % (0.5-1.5); BG DEOXYHEMOGLOBIN 4.2 % (0.0-5.0); BG FRACTION INSPIRED OXYGEN 100; BG HCO3 ACT 32.9 mmol/L (22.0-26.0); BG METHEMOGLOBIN 0.3 % (0.0-1.5); BG OXYGEN SATURATION 95.7 % (92.0-98.5); BG OXYHEMOGLOBIN 94.2 % (94.0-97.0); BG PCO2 56.4 mmHg (35.0-45.0); BG PH 7.384 (7.350-7.450); BG PO2 88.8 mmHg (75.0-100.0); BG SAMPLE SITE RIGHT RADIAL; BG TOTAL HEMOGLOBIN 7.9 g/dL (12.0-18.0); BG VENT MODE VENT - PRVC
[2023-06-06 10:33] LABS: PLATELET 26 x1000/uL (130-400)
[2023-06-06 14:12] LABS: GLYCOPROTEIN IV AB Negative (Negative); HLA CLASS 1 ANTIBODY Negative (Negative); IIb/IIIa ANTIBODY Negative (Negative); Ia/IIa ANTIBODY Negative (Negative); Ib/IX ANTIBODY Negative (Negative)
[2023-06-06] MEDS: FENTANYL CITRATE/PF 2,500 MCG in SODIUM CHLORIDE 0.9% 200 ML IV PRN ×2 (21:30→21:37)
[2023-06-07] VITALS (109 sets, daily range): BP systolic 130–203; BP diastolic 70–109; PULSE 77–103; RESP 10–29; TEMP 97.2–98.9
[2023-06-07] MEDS: IPRATROPIUM/ALBUTEROL 0.5-3(2.5)MG/3ML NEB HHN SCH ×6 (00:41→23:18)
[2023-06-07 06:27] LABS: HEMATOCRIT. 22.4 % (36.0-48.0); MEAN CORPUSCULAR HEMOGLOBIN 32.7 pg (28.0-32.0); MEAN CORPUSCULAR HGB CONC 30.9 g/dL (31.0-37.0); MEAN CORPUSCULAR VOLUME 105.9 fL (81.0-99.0); MEAN PLATELET VOLUME 10.4 fl (7.4-10.4); RED BLOOD CELL COUNT 2.12 mill/uL (4.2-5.4); RED CELL DISTRIBUTION WIDTH 27.6 % (11.6-14.6); WHITE BLOOD COUNT 14.5 x1000/uL (4.5-11.0)
[2023-06-07 06:36] LABS: CHLORIDE 109 mEq/L (98-107); INDEX HEMOLYSI 1 (1-3); INDEX ICTERIC 1 (1-4); INDEX LIPEMIC 1 (1-3); POTASSIUM 3.6 mEq/L (3.5-5.1); SODIUM 148 mEq/L (136-145)
[2023-06-07] MEDS: BLOOD SUGAR DIAGNOSTIC STRIP TEST SCH ×3 (06:37→17:50)
[2023-06-07 06:43] LABS: ALANINE AMINOTRANSFERASE 26 IU/L (13-61); ALBUMIN 1.7 g/dL (3.4-5.0); ASPARTATE AMINOTRANSFERASE 32 IU/L (15-37); BILIRUBIN DIRECT 1.4 mg/dL (0.0-0.2); BILIRUBIN TOTAL 1.6 mg/dL (0.1-1.0); CALCIUM 7.5 mg/dL (8.5-10.1); CARBON DIOXIDE 32 mEq/L (21-32); CREATININE 0.8 mg/dL (0.6-1.3); GLUCOSE 218 mg/dL (70-105); PHOSPHORUS 4.2 mg/dL (2.5-4.9); PROTEIN TOTAL 6.3 g/dL (6.0-8.3); TRIGLYCERIDE 190 mg/dL (0-150); UREA NITROGEN BLOOD 51 mg/dL (7-21)
[2023-06-07] MEDS: METHYLPREDNISOLONE SOD SUCC 125MG VIAL IV SCH ×3 (06:46→17:44)
[2023-06-07] MEDS: INSULIN LISPRO 100 UNITS/ML SUBCUT SCH ×3 (06:47→18:06)
[2023-06-07] MEDS: MEROPENEM 1,000 MG in SODIUM CHLORIDE 0.9% 100 ML IV SCH ×3 (06:48→22:08)
[2023-06-07 06:50] LABS: HEMOGLOBIN. 6.9 g/dL (12.0-16.0)
[2023-06-07 06:51] LABS: DIFFERENTIAL COMMENT 1
[2023-06-07] MEDS: PROPOFOL 10MG/ML 100ML 100 ML IV PRN ×2 (08:37→17:40)
[2023-06-07] MEDS: PANTOPRAZOLE SODIUM 40 MG/VIAL IV SCH ×2 (08:43→22:04)
[2023-06-07] MEDS: FUROSEMIDE 40MG/4ML VIAL IVP SCH (08:43)
[2023-06-07] MEDS: MENTHOL/LANOLIN/CALAMINE/ZN OX OINT 71GM TOP SCH ×2 (08:44→17:41)
[2023-06-07] MEDS: DOCUSATE SODIUM SUGAR FREE 100MG/10ML UDC NG SCH (08:44)
[2023-06-07] MEDS ORDERED: POTASSIUM CHLORIDE 20MEQ/PACKET PO NR (08:45)
[2023-06-07 09:42] LABS: NUCLEATED RED BLOOD CELLS 1 /100 WBC
[2023-06-07 09:43] LABS: ANISOCYTOSIS 4+; PLATELET ESTIMATE MARKEDLY DECREASED
[2023-06-07 09:44] LABS: PLATELET 22 x1000/uL (130-400)
[2023-06-07 10:23] LABS: BG BASE EXCESS 6.3 mmol/L (-2.0-2.0); BG CARBOXYHEMOGLOBIN 1.1 % (0.5-1.5); BG DEOXYHEMOGLOBIN 29.9 % (0.0-5.0); BG FRACTION INSPIRED OXYGEN 100; BG HCO3 ACT 33.2 mmol/L (22.0-26.0); BG METHEMOGLOBIN 0.3 % (0.0-1.5); BG OXYGEN SATURATION 69.7 % (92.0-98.5); BG OXYHEMOGLOBIN 68.7 % (94.0-97.0); BG PCO2 63.2 mmHg (35.0-45.0); BG PH 7.338 (7.350-7.450); BG PO2 41.8 mmHg (75.0-100.0); BG SAMPLE SITE RIGHT RADIAL; BG TOTAL HEMOGLOBIN 8.4 g/dL (12.0-18.0); BG VENT MODE VENT - PRVC
[2023-06-07 11:51] LABS: BG BASE EXCESS 5.5 mmol/L (-2.0-2.0); BG CARBOXYHEMOGLOBIN 0.9 % (0.5-1.5); BG DEOXYHEMOGLOBIN 4.2 % (0.0-5.0); BG FRACTION INSPIRED OXYGEN 100; BG HCO3 ACT 31.5 mmol/L (22.0-26.0); BG METHEMOGLOBIN 0.4 % (0.0-1.5); BG OXYGEN SATURATION 95.7 % (92.0-98.5); BG OXYHEMOGLOBIN 94.5 % (94.0-97.0); BG PCO2 55.7 mmHg (35.0-45.0); BG PH 7.371 (7.350-7.450); BG PO2 90.3 mmHg (75.0-100.0); BG SAMPLE SITE RIGHT RADIAL
[2023-06-07] MEDS: FENTANYL CITRATE/PF 2,500 MCG in SODIUM CHLORIDE 0.9% 200 ML IV PRN (14:22)
[2023-06-07 17:24] LABS: HEMATOCRIT 32.9 % (36.0-48.0); HEMOGLOBIN 9.7 g/dL (12.0-16.0)
[2023-06-07] MEDS: CLONIDINE 0.1MG TABLET PO PRN (18:48)
[2023-06-08] VITALS (87 sets, daily range): BP systolic 130–191; BP diastolic 69–105; PULSE 84–103; RESP 8–30; TEMP 98.1–98.8
[2023-06-08] MEDS: INSULIN LISPRO 100 UNITS/ML SUBCUT SCH ×4 (01:02→18:11)
[2023-06-08] MEDS: IPRATROPIUM/ALBUTEROL 0.5-3(2.5)MG/3ML NEB HHN SCH ×5 (04:44→20:21)
[2023-06-08] MEDS: PROPOFOL 10MG/ML 100ML 100 ML IV PRN ×2 (05:37→12:28)
[2023-06-08] MEDS: METHYLPREDNISOLONE SOD SUCC 125MG VIAL IV SCH ×4 (05:39→18:10)
[2023-06-08] MEDS: BLOOD SUGAR DIAGNOSTIC STRIP TEST SCH ×4 (06:00→18:10)
[2023-06-08 06:33] LABS: HEMATOCRIT. 29.6 % (36.0-48.0); HEMOGLOBIN. 9.3 g/dL (12.0-16.0); MEAN CORPUSCULAR HEMOGLOBIN 32.1 pg (28.0-32.0); MEAN CORPUSCULAR HGB CONC 31.4 g/dL (31.0-37.0); MEAN CORPUSCULAR VOLUME 102.3 fL (81.0-99.0); MEAN PLATELET VOLUME 10.2 fl (7.4-10.4); RED BLOOD CELL COUNT 2.89 mill/uL (4.2-5.4); RED CELL DISTRIBUTION WIDTH 25.9 % (11.6-14.6); WHITE BLOOD COUNT 15.8 x1000/uL (4.5-11.0)
[2023-06-08 06:48] LABS: DIFFERENTIAL COMMENT 1; PLATELET 26 x1000/uL (130-400)
[2023-06-08] MEDS: MEROPENEM 1,000 MG in SODIUM CHLORIDE 0.9% 100 ML IV SCH ×3 (07:24→21:39)
[2023-06-08 07:40] LABS: CHLORIDE 109 mEq/L (98-107); INDEX HEMOLYSI 3 (1-3); INDEX ICTERIC 1 (1-4); INDEX LIPEMIC 1 (1-3); POTASSIUM 4.2 mEq/L (3.5-5.1); SODIUM 145 mEq/L (136-145)
[2023-06-08 07:51] LABS: ALANINE AMINOTRANSFERASE 30 IU/L (13-61); ALBUMIN 1.8 g/dL (3.4-5.0); ASPARTATE AMINOTRANSFERASE 48 IU/L (15-37); BILIRUBIN DIRECT 1.6 mg/dL (0.0-0.2); BILIRUBIN TOTAL 1.9 mg/dL (0.1-1.0); CALCIUM 7.6 mg/dL (8.5-10.1); CARBON DIOXIDE 31 mEq/L (21-32); CREATININE 0.6 mg/dL (0.6-1.3); GLUCOSE 243 mg/dL (70-105); PROTEIN TOTAL 6.6 g/dL (6.0-8.3); TRIGLYCERIDE 165 mg/dL (0-150); UREA NITROGEN BLOOD 55 mg/dL (7-21)
[2023-06-08 08:29] LABS: BG BASE EXCESS 7.5 mmol/L (-2.0-2.0); BG CARBOXYHEMOGLOBIN 1.3 % (0.5-1.5); BG DEOXYHEMOGLOBIN 4.5 % (0.0-5.0); BG FRACTION INSPIRED OXYGEN 100; BG HCO3 ACT 34.9 mmol/L (22.0-26.0); BG METHEMOGLOBIN 0.3 % (0.0-1.5); BG OXYGEN SATURATION 95.4 % (92.0-98.5); BG OXYHEMOGLOBIN 93.9 % (94.0-97.0); BG PCO2 66.6 mmHg (35.0-45.0); BG PH 7.337 (7.350-7.450); BG PO2 84.2 mmHg (75.0-100.0); BG SAMPLE SITE RIGHT RADIAL; BG TOTAL HEMOGLOBIN 10.1 g/dL (12.0-18.0); BG TOTAL RESPIRATORY RATE 24 b/min; BG VENT MODE PRVC
[2023-06-08] MEDS: FUROSEMIDE 40MG/4ML VIAL IVP SCH (09:06)
[2023-06-08] MEDS: DOCUSATE SODIUM SUGAR FREE 100MG/10ML UDC NG SCH (09:06)
[2023-06-08] MEDS: PANTOPRAZOLE SODIUM 40 MG/VIAL IV SCH ×2 (09:06→21:39)
[2023-06-08] MEDS: CLONIDINE 0.1MG TABLET PO PRN ×2 (09:08→15:08)
[2023-06-08] MEDS: MENTHOL/LANOLIN/CALAMINE/ZN OX OINT 71GM TOP SCH ×2 (09:08→18:12)
[2023-06-08] MEDS: FENTANYL CITRATE/PF 2,500 MCG in SODIUM CHLORIDE 0.9% 200 ML IV PRN ×2 (09:10→23:41)
[2023-06-08 13:11] LABS: NUCLEATED RED BLOOD CELLS 2 /100 WBC; PLATELET ESTIMATE MARKEDLY DECREASED
[2023-06-08 13:12] LABS: ANISOCYTOSIS 2+
[2023-06-08] MEDS: HYDRALAZINE HCL 10MG TABLET PO PRN (21:09)
[2023-06-08] MEDS: LORAZEPAM 2MG/ML CPJ IV PRN (23:39)
[2023-06-09] VITALS (108 sets, daily range): BP systolic 95–217; BP diastolic 63–110; PULSE 90–139; RESP 11–35; TEMP 98.5–100
[2023-06-09] MEDS: IPRATROPIUM/ALBUTEROL 0.5-3(2.5)MG/3ML NEB HHN SCH ×3 (00:20→20:07)
[2023-06-09] MEDS: INSULIN LISPRO 100 UNITS/ML SUBCUT SCH ×4 (00:24→18:20)
[2023-06-09] MEDS: SODIUM CHLORIDE 3% FOR INH 4ML UD NEB INH SCH ×3 (00:33→20:07)
[2023-06-09] MEDS: PROPOFOL 10MG/ML 100ML 100 ML IV PRN ×5 (02:05→18:55)
[2023-06-09] MEDS: BLOOD SUGAR DIAGNOSTIC STRIP TEST SCH ×4 (06:00→18:19)
[2023-06-09] MEDS: METHYLPREDNISOLONE SOD SUCC 125MG VIAL IV SCH ×4 (06:00→18:19)
[2023-06-09] MEDS: MEROPENEM 1,000 MG in SODIUM CHLORIDE 0.9% 100 ML IV SCH ×3 (06:00→22:06)
[2023-06-09 06:12] LABS: HEMATOCRIT. 27.3 % (36.0-48.0); HEMOGLOBIN. 8.5 g/dL (12.0-16.0); MEAN CORPUSCULAR HEMOGLOBIN 32.4 pg (28.0-32.0); MEAN CORPUSCULAR HGB CONC 31.1 g/dL (31.0-37.0); MEAN CORPUSCULAR VOLUME 104.1 fL (81.0-99.0); MEAN PLATELET VOLUME 6.8 fl (7.4-10.4); RED BLOOD CELL COUNT 2.62 mill/uL (4.2-5.4); WHITE BLOOD COUNT 13.6 x1000/uL (4.5-11.0)
[2023-06-09 06:40] LABS: DIFFERENTIAL COMMENT 1
[2023-06-09 06:41] LABS: PLATELET 15 x1000/uL (130-400)
[2023-06-09 07:43] LABS: CHLORIDE 113 mEq/L (98-107); INDEX HEMOLYSI 1 (1-3); INDEX ICTERIC 1 (1-4); INDEX LIPEMIC 1 (1-3); POTASSIUM 4.4 mEq/L (3.5-5.1); SODIUM 148 mEq/L (136-145)
[2023-06-09 07:52] LABS: ALANINE AMINOTRANSFERASE 29 IU/L (13-61); ALBUMIN 1.7 g/dL (3.4-5.0); ASPARTATE AMINOTRANSFERASE 57 IU/L (15-37); BILIRUBIN DIRECT 1.3 mg/dL (0.0-0.2); BILIRUBIN TOTAL 1.6 mg/dL (0.1-1.0); CALCIUM 7.9 mg/dL (8.5-10.1); CARBON DIOXIDE 34 mEq/L (21-32); CREATININE 0.5 mg/dL (0.6-1.3); GLUCOSE 229 mg/dL (70-105); TRIGLYCERIDE 156 mg/dL (0-150); UREA NITROGEN BLOOD 55 mg/dL (7-21)
[2023-06-09] MEDS: PANTOPRAZOLE SODIUM 40 MG/VIAL IV SCH ×2 (08:08→22:06)
[2023-06-09] MEDS: FUROSEMIDE 40MG/4ML VIAL IVP SCH ×2 (08:08→09:49)
[2023-06-09] MEDS: DOCUSATE SODIUM SUGAR FREE 100MG/10ML UDC NG SCH (08:08)
[2023-06-09] MEDS: HYDRALAZINE HCL 10MG TABLET PO PRN (08:09)
[2023-06-09] MEDS: MENTHOL/LANOLIN/CALAMINE/ZN OX OINT 71GM TOP SCH ×2 (08:10→18:19)
[2023-06-09 09:08] LABS: BG BASE EXCESS 6.5 mmol/L (-2.0-2.0); BG CARBOXYHEMOGLOBIN 1.2 % (0.5-1.5); BG DEOXYHEMOGLOBIN 13.8 % (0.0-5.0); BG FRACTION INSPIRED OXYGEN 90; BG HCO3 ACT 32.4 mmol/L (22.0-26.0); BG METHEMOGLOBIN 0.5 % (0.0-1.5); BG OXYHEMOGLOBIN 84.5 % (94.0-97.0); BG PCO2 53.3 mmHg (35.0-45.0); BG PH 7.402 (7.350-7.450); BG PO2 54.3 mmHg (75.0-100.0); BG SAMPLE SITE RIGHT RADIAL; BG TOTAL HEMOGLOBIN 11.2 g/dL (12.0-18.0); BG TOTAL RESPIRATORY RATE 39 b/min; BG VENT MODE PRVC
[2023-06-09] MEDS ORDERED: HYDRALAZINE 20MG/ML VIAL IV NR (09:15)
[2023-06-09] MEDS: LORAZEPAM 2MG/ML CPJ IV PRN (09:49)
[2023-06-09] MEDS ORDERED: LACTULOSE 20G/30ML UDC PO PRN (11:45)
[2023-06-09] MEDS ORDERED: IPRATROPIUM/ALBUTEROL 0.5-3(2.5)MG/3ML NEB HHN PRN (12:45)
[2023-06-09] MEDS ORDERED: VECURONIUM BROMIDE 10 MG/VIAL IV NR (13:00)
[2023-06-09] MEDS ORDERED: SUCCINYLCHOLINE CHLORIDE 200MG/10ML IV NR (13:45)
[2023-06-09 13:49] LABS: NUCLEATED RED BLOOD CELLS 1 /100 WBC
[2023-06-09 13:50] LABS: ANISOCYTOSIS 2+; PLATELET ESTIMATE MARKEDLY DECREASED
[2023-06-09] MEDS: ACETYLCYSTEINE 100MG/ML 10% VIAL 4ML INH SCH (14:15)
[2023-06-09] MEDS: FENTANYL CITRATE/PF 2,500 MCG in SODIUM CHLORIDE 0.9% 200 ML IV PRN (14:41)
[2023-06-09] MEDS ORDERED: DIPHENHYDRAMINE 50MG/ML VIAL IV NR (16:00)
[2023-06-09] MEDS ORDERED: FAMOTIDINE 20MG/2ML VIAL IV NR (16:00)
[2023-06-09] MEDS ORDERED: DANTROLENE SODIUM 25MG CAPSULE PO NR (16:00)
[2023-06-09] MEDS ORDERED: NEOSTIGMINE METHYLSULFATE 1MG/ML 10 ML VIAL IM NR (16:00)
[2023-06-09] MEDS ORDERED: NEOSTIGMINE METHYLSULFATE 1MG/ML 10 ML VIAL IV NR ×3 (16:15→18:00)
[2023-06-10] VITALS (101 sets, daily range): BP systolic 97–170; BP diastolic 63–110; PULSE 90–135; RESP 15–36; TEMP 98.2–99.8
[2023-06-10] MEDS: SODIUM CHLORIDE 3% FOR INH 4ML UD NEB INH SCH ×6 (00:02→20:41)
[2023-06-10] MEDS: BLOOD SUGAR DIAGNOSTIC STRIP TEST SCH ×4 (00:24→17:49)
[2023-06-10] MEDS: IPRATROPIUM/ALBUTEROL 0.5-3(2.5)MG/3ML NEB HHN SCH ×6 (00:33→20:41)
[2023-06-10] MEDS: ACETYLCYSTEINE 100MG/ML 10% VIAL 4ML INH SCH ×3 (00:33→16:01)
[2023-06-10] MEDS: FENTANYL CITRATE/PF 2,500 MCG in SODIUM CHLORIDE 0.9% 200 ML IV PRN ×3 (02:11→16:16)
[2023-06-10] MEDS: INSULIN LISPRO 100 UNITS/ML SUBCUT SCH ×4 (02:13→17:49)
[2023-06-10] MEDS: METHYLPREDNISOLONE SOD SUCC 125MG VIAL IV SCH ×4 (02:19→17:36)
[2023-06-10] MEDS: PROPOFOL 10MG/ML 100ML 100 ML IV PRN ×3 (02:48→17:38)
[2023-06-10 06:23] LABS: HEMOGLOBIN. 10.8 g/dL (12.0-16.0); MEAN CORPUSCULAR HEMOGLOBIN 32.7 pg (28.0-32.0); MEAN CORPUSCULAR HGB CONC 31.9 g/dL (31.0-37.0); MEAN CORPUSCULAR VOLUME 102.8 fL (81.0-99.0); RED BLOOD CELL COUNT 3.31 mill/uL (4.2-5.4); RED CELL DISTRIBUTION WIDTH 27.6 % (11.6-14.6); WHITE BLOOD COUNT 21.8 x1000/uL (4.5-11.0)
[2023-06-10 06:24] LABS: CHLORIDE 117 mEq/L (98-107); INDEX HEMOLYSI 2 (1-3); INDEX ICTERIC 2 (1-4); INDEX LIPEMIC 1 (1-3); POTASSIUM 4.3 mEq/L (3.5-5.1); SODIUM 151 mEq/L (136-145)
[2023-06-10] MEDS: MEROPENEM 1,000 MG in SODIUM CHLORIDE 0.9% 100 ML IV SCH ×3 (06:29→21:40)
[2023-06-10 06:33] LABS: ALANINE AMINOTRANSFERASE 44 IU/L (13-61); ALBUMIN 1.9 g/dL (3.4-5.0); ASPARTATE AMINOTRANSFERASE 107 IU/L (15-37); BILIRUBIN DIRECT 1.7 mg/dL (0.0-0.2); BILIRUBIN TOTAL 2.1 mg/dL (0.1-1.0); CALCIUM 7.8 mg/dL (8.5-10.1); CARBON DIOXIDE 34 mEq/L (21-32); CREATININE 0.5 mg/dL (0.6-1.3); GLUCOSE 140 mg/dL (70-105); PROTEIN TOTAL 6.5 g/dL (6.0-8.3); TRIGLYCERIDE 211 mg/dL (0-150); UREA NITROGEN BLOOD 60 mg/dL (7-21)
[2023-06-10 06:34] LABS: DIFFERENTIAL COMMENT 1
[2023-06-10 06:37] LABS: PLATELET 30 x1000/uL (130-400)
[2023-06-10] MEDS ORDERED: DEXTROSE 5% WATER 1,000 ML IV SCH (08:00)
[2023-06-10] MEDS: PANTOPRAZOLE SODIUM 40 MG/VIAL IV SCH ×2 (08:51→21:40)
[2023-06-10] MEDS: FUROSEMIDE 40MG/4ML VIAL IVP SCH (08:52)
[2023-06-10] MEDS: DOCUSATE SODIUM SUGAR FREE 100MG/10ML UDC NG SCH (08:52)
[2023-06-10] MEDS: MENTHOL/LANOLIN/CALAMINE/ZN OX OINT 71GM TOP SCH ×2 (08:52→16:15)
[2023-06-10 09:17] LABS: BG BASE EXCESS 7.9 mmol/L (-2.0-2.0); BG CARBOXYHEMOGLOBIN 1.8 % (0.5-1.5); BG DEOXYHEMOGLOBIN 8.4 % (0.0-5.0); BG FRACTION INSPIRED OXYGEN 100; BG HCO3 ACT 35.7 mmol/L (22.0-26.0); BG METHEMOGLOBIN 0.2 % (0.0-1.5); BG OXYGEN SATURATION 91.4 % (92.0-98.5); BG OXYHEMOGLOBIN 89.6 % (94.0-97.0); BG PCO2 66.2 mmHg (35.0-45.0); BG PO2 67.2 mmHg (75.0-100.0); BG SAMPLE SITE LEFT RADIAL; BG TOTAL HEMOGLOBIN 12.6 g/dL (12.0-18.0); BG VENT MODE VENT - PRVC
[2023-06-10] MEDS: DEXTROSE 5% WATER 1,000 ML IV SCH (12:52)
[2023-06-10 13:39] LABS: ANISOCYTOSIS 2+; NUCLEATED RED BLOOD CELLS 2 /100 WBC; PLATELET ESTIMATE MARKEDLY DECREASED
[2023-06-10] MEDS ORDERED: VANCOMYCIN 1.25GM PMX (XELLIA) 250 ML IV NR (18:00)
[2023-06-11] VITALS (87 sets, daily range): BP systolic 62–159; BP diastolic 38–91; PULSE 80–198; RESP 10–32; TEMP 97.6–98.8
[2023-06-11] MEDS: IPRATROPIUM/ALBUTEROL 0.5-3(2.5)MG/3ML NEB HHN SCH ×4 (00:01→12:00)
[2023-06-11] MEDS: ACETYLCYSTEINE 100MG/ML 10% VIAL 4ML INH SCH ×3 (00:01→16:38)
[2023-06-11] MEDS: DEXTROSE 5% WATER 1,000 ML IV SCH ×2 (00:25→14:08)
[2023-06-11] MEDS: BLOOD SUGAR DIAGNOSTIC STRIP TEST SCH ×4 (00:57→17:23)
[2023-06-11] MEDS: METHYLPREDNISOLONE SOD SUCC 125MG VIAL IV SCH ×4 (01:02→17:29)
[2023-06-11] MEDS: PROPOFOL 10MG/ML 100ML 100 ML IV PRN ×3 (01:02→12:49)
[2023-06-11] MEDS: INSULIN LISPRO 100 UNITS/ML SUBCUT SCH ×4 (01:06→17:30)
[2023-06-11] MEDS: SODIUM CHLORIDE 3% FOR INH 4ML UD NEB INH SCH ×6 (04:10→23:34)
[2023-06-11] MEDS: MEROPENEM 1,000 MG in SODIUM CHLORIDE 0.9% 100 ML IV SCH ×3 (06:16→22:02)
[2023-06-11] MEDS: FENTANYL CITRATE/PF 2,500 MCG in SODIUM CHLORIDE 0.9% 200 ML IV PRN ×2 (06:32→19:01)
[2023-06-11 06:43] LABS: HEMATOCRIT. 35.1 % (36.0-48.0); MEAN CORPUSCULAR HEMOGLOBIN 33.4 pg (28.0-32.0); MEAN CORPUSCULAR HGB CONC 31.4 g/dL (31.0-37.0); MEAN CORPUSCULAR VOLUME 106.6 fL (81.0-99.0); RED CELL DISTRIBUTION WIDTH 27.5 % (11.6-14.6); WHITE BLOOD COUNT 24.3 x1000/uL (4.5-11.0)
[2023-06-11 06:58] LABS: DIFFERENTIAL COMMENT 1
[2023-06-11 07:00] LABS: PLATELET 16 x1000/uL (130-400)
[2023-06-11 08:40] LABS: ANISOCYTOSIS 3+; NUCLEATED RED BLOOD CELLS 1 /100 WBC
[2023-06-11 08:42] LABS: PLATELET ESTIMATE MARKEDLY DECREASED
[2023-06-11 08:57] LABS: BG BASE EXCESS 5.1 mmol/L (-2.0-2.0); BG DEOXYHEMOGLOBIN 24.5 % (0.0-5.0); BG FRACTION INSPIRED OXYGEN 100; BG HCO3 ACT 32.4 mmol/L (22.0-26.0); BG METHEMOGLOBIN 0.4 % (0.0-1.5); BG OXYGEN SATURATION 74.9 % (92.0-98.5); BG OXYHEMOGLOBIN 73.1 % (94.0-97.0); BG PCO2 61.8 mmHg (35.0-45.0); BG PH 7.338 (7.350-7.450); BG PO2 43.5 mmHg (75.0-100.0); BG SAMPLE SITE RIGHT RADIAL; BG TOTAL HEMOGLOBIN 11.9 g/dL (12.0-18.0); BG VENT MODE VENT - AC
[2023-06-11] MEDS: DOCUSATE SODIUM SUGAR FREE 100MG/10ML UDC NG SCH (09:23)
[2023-06-11] MEDS: VANCOMYCIN 750MG PREMIX 150 ML IV SCH ×2 (09:24→21:30)
[2023-06-11] MEDS: FUROSEMIDE 40MG/4ML VIAL IVP SCH (09:24)
[2023-06-11] MEDS: PANTOPRAZOLE SODIUM 40 MG/VIAL IV SCH ×2 (09:24→21:30)
[2023-06-11 09:26] LABS: CHLORIDE 113 mEq/L (98-107); INDEX HEMOLYSI 3 (1-3); INDEX ICTERIC 2 (1-4); INDEX LIPEMIC 1 (1-3); POTASSIUM 4.4 mEq/L (3.5-5.1); SODIUM 146 mEq/L (136-145)
[2023-06-11] MEDS: MENTHOL/LANOLIN/CALAMINE/ZN OX OINT 71GM TOP SCH ×2 (09:32→16:08)
[2023-06-11 09:34] LABS: ALANINE AMINOTRANSFERASE 59 IU/L (13-61); ASPARTATE AMINOTRANSFERASE 138 IU/L (15-37); BILIRUBIN DIRECT 2.4 mg/dL (0.0-0.2); BILIRUBIN TOTAL 3.4 mg/dL (0.1-1.0); CALCIUM 7.8 mg/dL (8.5-10.1); CARBON DIOXIDE 31 mEq/L (21-32); CREATININE 0.6 mg/dL (0.6-1.3); GLUCOSE 224 mg/dL (70-105); PROTEIN TOTAL 6.6 g/dL (6.0-8.3); TRIGLYCERIDE 386 mg/dL (0-150); UREA NITROGEN BLOOD 62 mg/dL (7-21)
[2023-06-11] MEDS ORDERED: DILTIAZEM HCL 5MG/ML 5ML VIAL IV NR (12:15)
[2023-06-11] MEDS ORDERED: IPRATROPIUM BROMIDE (0.02%) 0.5MG/2.5ML NEB HHN PRN (12:30)
[2023-06-11] MEDS: IPRATROPIUM BROMIDE (0.02%) 0.5MG/2.5ML NEB HHN SCH ×2 (16:38→21:25)
[2023-06-11 16:48] LABS: HEMATOCRIT. 35.8 % (36.0-48.0); HEMOGLOBIN. 10.8 g/dL (12.0-16.0); MEAN CORPUSCULAR HEMOGLOBIN 32.6 pg (28.0-32.0); MEAN CORPUSCULAR HGB CONC 30.3 g/dL (31.0-37.0); MEAN CORPUSCULAR VOLUME 107.6 fL (81.0-99.0); MEAN PLATELET VOLUME 6.8 fl (7.4-10.4); RED BLOOD CELL COUNT 3.32 mill/uL (4.2-5.4); RED CELL DISTRIBUTION WIDTH 28.2 % (11.6-14.6); WHITE BLOOD COUNT 24.2 x1000/uL (4.5-11.0)
[2023-06-11 16:50] LABS: DIFFERENTIAL COMMENT 1; PLATELET 15 x1000/uL (130-400)
[2023-06-11 17:05] LABS: CHLORIDE 110 mEq/L (98-107); INDEX HEMOLYSI 3 (1-3); INDEX ICTERIC 2 (1-4); INDEX LIPEMIC 1 (1-3); POTASSIUM 4.2 mEq/L (3.5-5.1); SODIUM 145 mEq/L (136-145)
[2023-06-11 17:11] LABS: CARBON DIOXIDE 30 mEq/L (21-32); CREATININE 0.5 mg/dL (0.6-1.3); GLUCOSE 260 mg/dL (70-105); UREA NITROGEN BLOOD 67 mg/dL (7-21)
[2023-06-11 17:20] LABS: NUCLEATED RED BLOOD CELLS 1 /100 WBC
[2023-06-11 17:21] LABS: ANISOCYTOSIS 3+; PLATELET ESTIMATE MARKEDLY DECREASED
[2023-06-11] MEDS ORDERED: FENTANYL 2500MCG/250ML PMX 250 ML IV PRN (18:30)
[2023-06-11] MEDS ORDERED: SODIUM CHLORIDE 0.9% IV PRN (18:45)
[2023-06-11] MEDS ORDERED: FENTANYL CITRATE IV PRN (18:45)
[2023-06-12] VITALS (85 sets, daily range): BP systolic 100–189; BP diastolic 68–119; PULSE 57–184; RESP 13–49; TEMP 98.4–98.9; O2SAT 94
[2023-06-12] MEDS: BLOOD SUGAR DIAGNOSTIC STRIP TEST SCH ×4 (00:05→17:00)
[2023-06-12] MEDS: INSULIN LISPRO 100 UNITS/ML SUBCUT SCH ×4 (00:09→17:00)
[2023-06-12] MEDS: METHYLPREDNISOLONE SOD SUCC 125MG VIAL IV SCH ×4 (00:10→17:02)
[2023-06-12] MEDS: ACETYLCYSTEINE 100MG/ML 10% VIAL 4ML INH SCH ×2 (01:28→14:21)
[2023-06-12] MEDS: IPRATROPIUM BROMIDE (0.02%) 0.5MG/2.5ML NEB HHN SCH ×4 (01:28→20:54)
[2023-06-12] MEDS: SODIUM CHLORIDE 3% FOR INH 4ML UD NEB INH SCH ×4 (04:46→14:28)
[2023-06-12] MEDS: PROPOFOL 10MG/ML 100ML 100 ML IV PRN ×4 (04:56→22:59)
[2023-06-12] MEDS: MEROPENEM 1,000 MG in SODIUM CHLORIDE 0.9% 100 ML IV SCH ×3 (04:58→21:27)
[2023-06-12 05:49] LABS: CHLORIDE 110 mEq/L (98-107); INDEX HEMOLYSI 4 (1-3); INDEX ICTERIC 2 (1-4); INDEX LIPEMIC 1 (1-3); POTASSIUM 4.6 mEq/L (3.5-5.1); SODIUM 143 mEq/L (136-145)
[2023-06-12 05:58] LABS: ALANINE AMINOTRANSFERASE 69 IU/L (13-61); ALBUMIN 1.9 g/dL (3.4-5.0); ASPARTATE AMINOTRANSFERASE 129 IU/L (15-37); BILIRUBIN DIRECT 3.3 mg/dL (0.0-0.2); CALCIUM 7.5 mg/dL (8.5-10.1); CARBON DIOXIDE 32 mEq/L (21-32); CREATININE 0.5 mg/dL (0.6-1.3); GLUCOSE 236 mg/dL (70-105); PROTEIN TOTAL 6.3 g/dL (6.0-8.3); UREA NITROGEN BLOOD 69 mg/dL (7-21)
[2023-06-12 06:04] LABS: HEMATOCRIT. 34.7 % (36.0-48.0); HEMOGLOBIN. 10.6 g/dL (12.0-16.0); MEAN CORPUSCULAR HEMOGLOBIN 33.1 pg (28.0-32.0); MEAN CORPUSCULAR HGB CONC 30.5 g/dL (31.0-37.0); MEAN CORPUSCULAR VOLUME 108.5 fL (81.0-99.0); MEAN PLATELET VOLUME 6.5 fl (7.4-10.4); RED BLOOD CELL COUNT 3.19 mill/uL (4.2-5.4); RED CELL DISTRIBUTION WIDTH 27.4 % (11.6-14.6); WHITE BLOOD COUNT 21.6 x1000/uL (4.5-11.0)
[2023-06-12 06:11] LABS: DIFFERENTIAL COMMENT 1
[2023-06-12 08:52] LABS: BG BASE EXCESS 6.3 mmol/L (-2.0-2.0); BG CARBOXYHEMOGLOBIN 1.4 % (0.5-1.5); BG DEOXYHEMOGLOBIN 13.3 % (0.0-5.0); BG FRACTION INSPIRED OXYGEN 100; BG HCO3 ACT 34.2 mmol/L (22.0-26.0); BG METHEMOGLOBIN 0.3 % (0.0-1.5); BG OXYGEN SATURATION 86.5 % (92.0-98.5); BG PCO2 67.6 mmHg (35.0-45.0); BG PH 7.322 (7.350-7.450); BG SAMPLE SITE RIGHT RADIAL; BG TOTAL HEMOGLOBIN 11.8 g/dL (12.0-18.0); BG VENT MODE VENT - PRVC
[2023-06-12] MEDS: VANCOMYCIN 750MG PREMIX 150 ML IV SCH (09:10)
[2023-06-12] MEDS: FUROSEMIDE 40MG/4ML VIAL IVP SCH (09:10)
[2023-06-12] MEDS: DOCUSATE SODIUM SUGAR FREE 100MG/10ML UDC NG SCH (09:10)
[2023-06-12] MEDS: MENTHOL/LANOLIN/CALAMINE/ZN OX OINT 71GM TOP SCH ×2 (09:10→17:02)
[2023-06-12] MEDS: PANTOPRAZOLE SODIUM 40 MG/VIAL IV SCH ×2 (09:11→21:27)
[2023-06-12] MEDS: FENTANYL CITRATE/PF 2,500 MCG in SODIUM CHLORIDE 0.9% 200 ML IV PRN ×2 (09:17→22:58)
[2023-06-12 16:39] LABS: ANISOCYTOSIS 4+; NUCLEATED RED BLOOD CELLS 8 /100 WBC; PLATELET ESTIMATE MARKEDLY DECREASED
[2023-06-12 16:40] LABS: PLATELET 13 x1000/uL (130-400)
[2023-06-12] MEDS: HYDRALAZINE HCL 10MG TABLET PO PRN (17:02)
[2023-06-13] VITALS (24 sets, daily range): BP systolic 136–205; BP diastolic 87–123; PULSE 92–117; RESP 13–30; TEMP 97.7–98.6
[2023-06-13] MEDS: METHYLPREDNISOLONE SOD SUCC 125MG VIAL IV SCH ×2 (00:08→06:08)
[2023-06-13] MEDS: INSULIN LISPRO 100 UNITS/ML SUBCUT SCH ×2 (00:09→06:08)
[2023-06-13] MEDS: SODIUM CHLORIDE 3% FOR INH 4ML UD NEB INH SCH ×2 (00:59→04:42)
[2023-06-13] MEDS: ACETYLCYSTEINE 100MG/ML 10% VIAL 4ML INH SCH ×2 (01:00→08:44)
[2023-06-13] MEDS: IPRATROPIUM BROMIDE (0.02%) 0.5MG/2.5ML NEB HHN SCH ×2 (01:00→08:44)
[2023-06-13] MEDS ORDERED: VANCOMYCIN 750MG PREMIX 150 ML IV SCH (03:00)
[2023-06-13] MEDS: BLOOD SUGAR DIAGNOSTIC STRIP TEST SCH ×2 (06:00)
[2023-06-13] MEDS: MEROPENEM 1,000 MG in SODIUM CHLORIDE 0.9% 100 ML IV SCH (06:07)
[2023-06-13] MEDS: HYDRALAZINE HCL 10MG TABLET PO PRN (06:45)
[2023-06-13 06:46] LABS: CHLORIDE 108 mEq/L (98-107); INDEX HEMOLYSI 3 (1-3); INDEX ICTERIC 3 (1-4); INDEX LIPEMIC 1 (1-3); POTASSIUM 4.1 mEq/L (3.5-5.1); SODIUM 146 mEq/L (136-145)
[2023-06-13 06:52] LABS: CALCIUM 8.2 mg/dL (8.5-10.1); CARBON DIOXIDE 34 mEq/L (21-32); CREATININE 0.4 mg/dL (0.6-1.3); GLUCOSE 229 mg/dL (70-105); PHOSPHORUS 3.4 mg/dL (2.5-4.9); TRIGLYCERIDE 567 mg/dL (0-150); UREA NITROGEN BLOOD 64 mg/dL (7-21)
[2023-06-13 06:54] LABS: HEMATOCRIT. 35.6 % (36.0-48.0); HEMOGLOBIN. 10.9 g/dL (12.0-16.0); MEAN CORPUSCULAR HEMOGLOBIN 32.4 pg (28.0-32.0); MEAN CORPUSCULAR HGB CONC 30.7 g/dL (31.0-37.0); MEAN CORPUSCULAR VOLUME 105.8 fL (81.0-99.0); MEAN PLATELET VOLUME 7.5 fl (7.4-10.4); RED BLOOD CELL COUNT 3.37 mill/uL (4.2-5.4); RED CELL DISTRIBUTION WIDTH 26.6 % (11.6-14.6)
[2023-06-13] MEDS ORDERED: MORPHINE SULFATE 250 MG in DEXT 5% WATER 225 ML IV PRN (07:15)
[2023-06-13 07:17] LABS: DIFFERENTIAL COMMENT 1; PLATELET 13 x1000/uL (130-400)
[2023-06-13 08:41] LABS: BG BASE EXCESS 8.9 mmol/L (-2.0-2.0); BG CARBOXYHEMOGLOBIN 2.3 % (0.5-1.5); BG DEOXYHEMOGLOBIN 8.9 % (0.0-5.0); BG FRACTION INSPIRED OXYGEN 100; BG HCO3 ACT 36.1 mmol/L (22.0-26.0); BG METHEMOGLOBIN 0.2 % (0.0-1.5); BG OXYGEN SATURATION 90.9 % (92.0-98.5); BG OXYHEMOGLOBIN 88.6 % (94.0-97.0); BG PCO2 61.8 mmHg (35.0-45.0); BG PH 7.384 (7.350-7.450); BG PO2 63.6 mmHg (75.0-100.0); BG SAMPLE SITE RIGHT RADIAL; BG TOTAL HEMOGLOBIN 12.8 g/dL (12.0-18.0); BG VENT MODE VENT - PRVC
[2023-06-13] MEDS: MENTHOL/LANOLIN/CALAMINE/ZN OX OINT 71GM TOP SCH (09:29)
[2023-06-13] MEDS: PANTOPRAZOLE SODIUM 40 MG/VIAL IV SCH (09:30)
[2023-06-13] MEDS: DOCUSATE SODIUM SUGAR FREE 100MG/10ML UDC NG SCH (09:30)
[2023-06-13] MEDS: FUROSEMIDE 40MG/4ML VIAL IVP SCH (09:30)
[2023-06-13 10:14] LABS: NUCLEATED RED BLOOD CELLS 6 /100 WBC; PLATELET ESTIMATE MARKEDLY DECREASED
== END 2023-06-13 15:37 | DRG 4 ==
LOC: ER 10:14 → EDBEDREQSVC 13:51 → CVICU 18:07
PROVIDERS: ADMIT Internal Medicine; ATTEND Internal Medicine
PROC: 5A1955Z Respiratory Ventilation, Greater than 96 Consecutive Hours (ICD-10-PCS; principal; 2023-05-16)
PROC: 0BH17EZ Insertion of Endotracheal Airway into Trachea, Via Natural or Artificial Opening (ICD-10-PCS; 2023-05-16)
PROC: 02HV33Z Insertion of Infusion Device into Superior Vena Cava, Percutaneous Approach (ICD-10-PCS; 2023-05-19)
PROC: B548ZZA Ultrasonography of Superior Vena Cava, Guidance (ICD-10-PCS; 2023-05-19)
PROC: 30233R1 Transfusion of Nonautologous Platelets into Peripheral Vein, Percutaneous Approach (ICD-10-PCS; 2023-05-29)
PROC: 30233N1 Transfusion of Nonautologous Red Blood Cells into Peripheral Vein, Percutaneous Approach (ICD-10-PCS; 2023-06-01)
PROC: 0W9B3ZZ Drainage of Left Pleural Cavity, Percutaneous Approach (ICD-10-PCS; 2023-06-02)
PROC: 0B110F4 Bypass Trachea to Cutaneous with Tracheostomy Device, Open Approach (ICD-10-PCS; 2023-06-05)
PROC: 0GBJ0ZZ Excision of Thyroid Gland Isthmus, Open Approach (ICD-10-PCS; 2023-06-05)
DX: A40.8 Other streptococcal sepsis (principal); N17.0 Acute kidney failure with tubular necrosis; R65.21 Severe sepsis with septic shock; G92.8 Other toxic encephalopathy; E43 Unspecified severe protein-calorie malnutrition; K92.2 Gastrointestinal hemorrhage, unspecified; D68.9 Coagulation defect, unspecified; J96.02 Acute respiratory failure with hypercapnia; J96.01 Acute respiratory failure with hypoxia; I21.4 Non-ST elevation (NSTEMI) myocardial infarction; Z66 Do not resuscitate; Z51.5 Encounter for palliative care; Z20.822 Contact with and (suspected) exposure to COVID-19; D69.6 Thrombocytopenia, unspecified; E80.4 Gilbert syndrome; E87.6 Hypokalemia; N39.0 Urinary tract infection, site not specified; E87.1 Hypo-osmolality and hyponatremia; E11.65 Type 2 diabetes mellitus with hyperglycemia; I13.0 Hypertensive heart and chronic kidney disease with heart failure and stage 1 through stage 4 chronic kidney disease, or unspecified chronic kidney disease; I50.30 Unspecified diastolic (congestive) heart failure; J18.9 Pneumonia, unspecified organism; Z68.30 Body mass index [BMI] 30.0-30.9, adult; B35.3 Tinea pedis; E11.22 Type 2 diabetes mellitus with diabetic chronic kidney disease; E11.43 Type 2 diabetes mellitus with diabetic autonomic (poly)neuropathy; D53.9 Nutritional anemia, unspecified; J90 Pleural effusion, not elsewhere classified; E87.0 Hyperosmolality and hypernatremia; E88.09 Other disorders of plasma-protein metabolism, not elsewhere classified; I47.1 Supraventricular tachycardia; J93.9 Pneumothorax, unspecified; K59.00 Constipation, unspecified; E87.4 Mixed disorder of acid-base balance; N18.1 Chronic kidney disease, stage 1; S90.129A Contusion of unspecified lesser toe(s) without damage to nail, initial encounter; J98.2 Interstitial emphysema; Z79.01 Long term (current) use of anticoagulants; Z79.4 Long term (current) use of insulin; Z86.718 Personal history of other venous thrombosis and embolism; Z79.82 Long term (current) use of aspirin; Z79.899 Other long term (current) drug therapy; Z85.3 Personal history of malignant neoplasm of breast; Z90.12 Acquired absence of left breast and nipple; Z99.11 Dependence on respirator [ventilator] status; W18.39XA Other fall on same level, initial encounter; Y93.89 Activity, other specified; Y92.89 Other specified places as the place of occurrence of the external cause; Y99.8 Other external cause status
CPT/HCPCS: 31500; 32555; 36415; 36573; 36600; 71045; 71250; 71260; 71275; 74018; 74177; 76604; 76700; 80048; 80053; 80076; 80202; 81003; 82140; 82375; 82550; 82553; 82607; 82728; 82746; 82803; 82805; 82962; 83036; 83540; 83550; 83605; 83615; 83735; 83880; 84100; 84134; 84145; 84439; 84443; 84478; 84484; 85014; 85018; 85025; 85027; 85044; 85379; 85384; 86022; 86705; 86709; 86803; 86850; 86900; 86920; 86945; 87070; 87077; 87186; 87340; 87426; 88108; 88312; 92950; 93005; 93306; 93970; 93971; 94002; 94003; 94640; 94660; 94664; 94667; 97161; 99291; A6261; C1725; C1769; C9113; J0330; J0360; J1200; J1650; J1815; J1940; J2060; J2185; J2248; J2250; J2270; J2370; J2405; J2543; J2704; J2710; J2765; J2920; J2930; J3010; J3370; J3480; J3490; J7030; J7050; J7060; J7070; J7512; J7608; P9016; P9034; Q9967; A4315